=== PATIENT | male | born 1965 | race American Indian/Alaskan Native ===

== ENCOUNTER 2018-11-05 14:50 | Emergency (ER) | payer OTHER ==
[~2018-11-05] VITALS: Ht 170.2 cm; Wt 72.6 kg
--- OUTSIDE RECORDS SUMMARY | ~2018-11-05 | XMS | Clinical Summary ---
Demographics + + + | Address | [address] | | | [place] [address] | + + + | Home Phone | | + + + | Preferred Language | Unknown | + + + | Marital Status | | + + + | Alevism Affiliation | Unknown | + + + | Race | or | + + + | Ethnic Group | Not or | + + + Author + + + | Author | [facility] | + + + | Organization | [facility] | + + + | Address | Unknown | + + + | Phone | Unavailable | + + + Support + + + + + | Name | Relationship | Address | Phone | + + + + + | Greer Mccabe | [place] | [address] | | | | | [place] | | | | | [address] | | + + + + + Care Team Providers + +------+ + | Care Laboratory Apparatus Glass Blower Name | Role | Phone | + +------+ + | Rafa Deleon MD | PP | Unavailable | + +------+ + Source Comments THADDEUS is fully live on both [facility] and [facility] InPatient.[facility] Allergies No Known Allergies Medications + + + +---------+------+------+-------+ | Medication | Sig | Dispensed | Refills | Star | End | Statu | | | | | | t | Date | s | | | | | | Date | | | + + + +---------+------+------+-------+ | methocarbamol | Take 750 mg by mouth | | 0 | 08/0 | | Activ | | (ROBAXIN-750) 750 mg | three times daily. | | | 2/20 | | e | | Oral Tablet | | | | 11 | | | + + + +---------+------+------+-------+ | | Take 1 Tab by mouth | | 0 | 08/0 | | Activ | | HYDROcodone-acetamin | three times daily. | | | 2/20 | | e | | ophen (VICODIN ES) | Not to exceed 5 | | | 11 | | | | 7.5-750 mg Oral | tablets per any 24 | | | | | | | Tablet | hour period. (Not to | | | | | | | | exceed 4000 mg of | | | | | | | | acetaminophen from | | | | | | | | all products per 24 | | | | | | | | hour period.) | | | | | | + + + +---------+------+------+-------+ | predniSONE 10 mg | Take 10 mg by mouth | | 0 | | | Activ | | Oral Tablet | once daily. | | | | | e | + + + +---------+------+------+-------+ | OMEPRAZOLE | Take 1 Tab by mouth | | 0 | 08/0 | | Activ | | (PRILOSEC ORAL) | once daily. | | | 2/20 | | e | | | | | | 11 | | | + + + +---------+------+------+-------+ | folic acid 1 mg | Take 1 mg by mouth | | 0 | | | Activ | | Oral Tablet | once daily. | | | | | e | + + + +---------+------+------+-------+ | ergocalciferol | Take 1 Cap by mouth | 12 Cap | 0 | 08/1 | | Activ | | (VITAMIN D) 50,000 | every seven days. | | | 20 | | e | | unit Oral Capsule | | | | 11 | | | + + + +---------+------+------+-------+ | methotrexate 2.5 | Take 8 Tabs by mouth | 32 Tab | 3 | 07/0 | | Activ | | mg Oral Tablet | every seven days. | | | 03/10 | | e | | | | | | 12 | | | + + + +---------+------+------+-------+ | Etanercept 50 | Inject under the | | 0 | | | Activ | | mg/mL (0.98 mL) | skin (SUBC). | | | | | e | | subcutaneous syringe | | | | | | | + + + +---------+------+------+-------+ Active Problems + + + | Problem | Noted Date | + + + | Primary osteoarthritis | 05/21/2015 | + + + | Fibromyalgia | 05/21/2015 | + + + | Rheumatoid arthritis | 01/20/2011 | + + + + + | Overview: ICD10 | + + Immunizations + + + + | Name | Administration Dates | Next Due | + + + + | Influenza, | 05/21/2015 | | | injectable, | | | | quadrivalent, | | | | preservative free | | | | (IIV4) | | | + + + + | Pneumococcal 23 | 05/21/2015 | | + + + + Social History + +-------+ +--------+------+ | Tobacco Use | Types | Packs/Day | Years | Date | | | | | Used | | + +-------+ +--------+------+ | Current Some Day | | | | | | Smoker | | | | | + +-------+ +--------+------+ + + +---------+ + | Alcohol Use | Drinks/Week | oz/Week | Comments | + + +---------+ + | Not Asked | 0 Standard drinks | 0.0 | | | | or equivalent | | | + + +---------+ + + + + | Sex Assigned at | Date Recorded | | | | + + + | Not on file | | + + + + + + + | Job Start Date | Occupation | Industry | + + + + | Not on file | Not on file | Not on file | + + + + + + + + | Travel History | Travel Start | Travel End | + + + + + + | No recent travel history available. | + + Last Filed Vital Signs + + + + + | Vital Sign | Reading | Time Taken | Comments | + + + + + | Blood Pressure | 117/75 | 05/21/2015 2:02 PM | | | | | PST | | + + + + + | Pulse | 89 | 05/21/2015 2:02 PM | | | | | PST | | + + + + + | Temperature | - | - | | + + + + + | Respiratory Rate | - | - | | + + + + + | Oxygen Saturation | - | - | | + + + + + | Inhaled Oxygen | - | - | | | Concentration | | | | + + + + + | Weight | 79.4 kg (175 lb) | 05/21/2015 2:02 PM | | | | | PST | | + + + + + | Height | 170.2 cm (5' 7") | 05/21/2015 2:02 PM | | | | | PST | | + + + + + | Body Mass Index | 27.41 | 05/21/2015 2:02 PM | | | | | PST | | + + + + + Plan of Treatment + + + + + | Health Maintenance | Due Date | Last Done | Comments | + + + + + | Pneumococcal | | 05/21/2015 | | | vaccination (2 of 3 | 6 | | | | - PCV13) | | | | + + + + + | Influenza (Flu) | | 05/21/2015 | | | vaccination (Season | 9 | | | | Ended) | | | | + + + + + Results Not on filefrom Last 3 Months Insurance + +--------+ +--------+-------+---------+--------+ | Payer | Benefi | Subscriber | Effect | Phone | Address | Type | | | t Plan | ID | noel | | | | | | / | | Dates | | | | | | Group | | | | | | + +--------+ +--------+-------+---------+--------+ | [employer] | [employer] | xxxx | | | | Agency | | SERVICE | | | 014-Pr | | | | | | HEALTH | | esent | | | | | | | | | | | | | | SERVIC | | | | | | | | E | | | | | | + +--------+ +--------+-------+---------+--------+ | [employer]ICA[employer] | MENAGERIE SUPERINTENDENT | xxxxxxxx | | | | Medica | | | EASTER | | 015-Pr | | | id | | | [place] | | esent | | | | + +--------+ +--------+-------+---------+--------+ + +--------+ +--------+ + + | Guarantor Name | Accoun | Relation to | Date | Phone | Billing Address | | | t Type | Patient | of | | | | | | | | | | + +--------+ +--------+ + + | Isacc Mccabe | Person | Self | [birth year] | [address] | | | al/Fam | | 1966 | [phone] | [place] | | | dylan | | | 8 (Home) | [address] | + +--------+ +--------+ + + | Isacc Mccabe | Agency | Self | [birth year] | | [address] | | | | | 1966 | [phone] | [place] | | | | | | [address] (Home) | [address] | + +--------+ +--------+ + + Advance Directives + + + + + | Type | Date Recorded | Patient | Explanation | | | | Cake Press Operator | | + + + + + | Advance | | | | | Directives and | | | | | Living Will | | | | + + + + + | Power of | | | | | Lap Cutter Truer Operator | | | | + + + + +
--- OUTSIDE RECORDS SUMMARY | ~2018-11-05 | XMS | Encounter Summary ---
Demographics + + + | Address | [address] | | | [place] [address] | + + + | Home Phone | | + + + | Preferred Language | Unknown | + + + | Marital Status | | + + + | Jewish Affiliation | Unknown | + + + | Race | or | + + + | Ethnic Group | Not or | + + + Author + + + | Author | [facility] [employer] [facility] | + + + | Organization | [facility] [place] [facility] | + + + | Address | Unknown | + + + | Phone | Unavailable | + + + Support + + + + + | Name | Relationship | Address | Phone | + + + + + | Greer Mccabe | ECON | [address] | | | | | [place] | | | | | [address] | | + + + + + Care Team Providers + +------+ + | Care World Geography Teacher Name | Role | Phone | + +------+ + | Rafa Deleon MD | PCP | Unavailable | + +------+ + Reason for Visit + + + | Reason | Comments | + + + | New patient | | | consultation | | + + + Consultation (Routine) +--------+--------+ + + + + | Status | Reason | Specialty | Diagnoses / | Referred By | Referred To | | | | | Procedures | Contact | Contact | +--------+--------+ + + + + | Closed | | Rheumatology | Diagnoses | [place], | [facility] | | | | | Rheumatoid | Darrion Vazquez MD | [facility] | | | | | arthritis(71 | [address] | [address] | | | | | 4.0) | [address] | [facility] | | | | | | [facility] | Mailcode: | | | | | | 2010 | [address] | | | | | | [address] | Physicians | | | | | | [place] [address] | [address] | | | | | | Phone: | Floor | | | | | | [phone] | [place], [place] | | | | | | Fax: | [address] | | | | | | [phone] | Phone: | | | | | | | [phone] | | | | | | | Fax: | | | | | | | [phone] | +--------+--------+ + + + + Encounter Details +--------+---------+ + + + | Date | Type | Department | Care Team | Description | +--------+---------+ + + + | 05/21/ | Office | Rheumatology at | Dari Reyes MD | Rheumatoid arthritis | | 2015 | Visit | [facility] | [facility] | ([facility]) (Primary Dx); | | | | [address] [facility] | Rheumatology 9[address] | Primary | | | | [facility] | [facility] | osteoarthritis | | | | Mailcode: PV35 | [address] [place], [place] | involving multiple | | | | [facility] [place] | [address] | joints; Fibromyalgia | | | | [place], [place] | | | | | | [address] | | | | | | [phone] | | | +--------+---------+ + + + Social History + +-------+ [...] recent travel history available. | + + documented as of this encounter Last Filed Vital Signs + + + [...] | | + + + + + documented in this encounter Progress Notes Rosa Prieto MD - 05/22/2015 11:35 AM PSTI have evaluated the patient with Dr Reyes and hope rodgers with the history, findings, assessment and plan. Rosa Prieto M.D. [address] [place] [address] Mailcode: Pv35 [facility] [phone] Mercedes Faulkner MA - 06/2014 3:08 PM PSTThe patient was screened for the following contraindications to influenza vaccine and responses were as follows: Febrile illness today? No Allergy to eggs? No Prior history of a reaction to flu vaccine? No Prior history of Guillain-Sundown syndrome? No (For patients receiving Fluarix): Allergy or sensitivity to Latex? Not applicable Consulted with regarding positive responses. Dari Hernández - 1 07/22/2014 11:03 AM PST RHEUMATOLOGY NEW VISIT PCP Rafa Deleon MD [facility] [address] [place] [address] Chief Complaint: Ongoing jt pains HPI: Isacc Mccabe is a 49 y.o. male who is referred for evaluation and treatment of jt pains 2003: Diagnosed with RA which primarily involved hands and feet. 2008: Underwent Neck surgery : anterior cervical discectomy with fusion with [address] d in the neck. Started on MTX, prednisone 10 mg ( and per patient- has been on this dose since) 2013: Was hospitalized for GI bleeding- with cauterization of gastric bleeding vessel done . November 2014: Started on Enbrel by Dr. Deleon. Changed MTX from 20 mg to 15 mg. DCd tramad ol and naproxen. Continued on prednisone 10mg Today pt c/o Pain in several joints b/l : Shoulders, knees, ankles, hands. Also pain in lo wer back and neck. Pain 9/10 in severity with no clear aggravating or relieving factors. Joint swelling has significantly reduced since starting Enbrel per pt. Morning stiffness lasts 4-5 hrs No nodules/ ulcers/ rashes No fever/ chills/ malaise/ fatigue No infections since last visit.No exposure to TB No Chest pain/ SOB/ Nausea/ vomiting. No dry eyes/ dry mouth. Pt c/o difficulty falling asleep and staying asleep. Pt c/o excessive snoring with witnesse d apneic spells. Pt has not had a sleep study in the past. Pt c/o depression but no suicidal or homicidal ideation. No audio-visual hallucinations. Pt c/o memory impairment with short term > skilled nursing memory affected. She described difficu lty with organization of thoughts. Pt often c/o head to toe pain ++ and exageration of any ongoing pain. ROS: 10 point ROS negative as per patient questionnaire reviewed with patient and scanned with t his encounter except for as above. Past Medical History Diagnosis Date Rheumatoid arthritis(714.0) (HCC) Osteoarthritis Past Surgical History Procedure Laterality Date Cervical spine surgery with plates put in Current Outpatient Prescriptions Medication Sig ergocalciferol (VITAMIN D) 50,000 unit Oral Capsule Take 1 Cap by mouth every seven day s. Etanercept 50 mg/mL (0.98 mL) subcutaneous syringe Inject under the skin (SUBC). folic acid 1 mg Oral Tablet Take 1 mg by mouth once daily. HYDROcodone-acetaminophen (VICODIN ES) 7.5-750 mg Oral Tablet Take 1 Tab by mouth three times daily. Not to exceed 5 tablets per any 24 hour period. (Not to exceed 4000 mg of acet aminophen from all products per 24 hour period.) methocarbamol (ROBAXIN-750) 750 mg Oral Tablet Take 750 mg by mouth three times daily. methotrexate 2.5 mg Oral Tablet Take 8 Tabs by mouth every seven days. naproxen sodium (ALEVE) 220 mg Oral Capsule Take 220 mg by mouth two times daily. OMEPRAZOLE (PRILOSEC ORAL) Take 1 Tab by mouth once daily. predniSONE 10 mg Oral Tablet Take 10 mg by mouth once daily. traMADol 50 mg Oral Tablet Take 50 mg by mouth three times daily. No current facility-administered medications for this visit. No Known Allergies History Substance Use Topics Smoking status: Current Some Day Smoker Smokeless tobacco: Not on file Alcohol Use: Not on file FH: grandmother had RA- was wheelchair bound. Has not had Flu shot this yr. Examination: BP 117/75 | Pulse 89 | Ht 1.702 m (5' 7") | Wt 79.379 kg (175 lb) | BMI 27.4 kg/(m^2) Rapid 3 MHAQ: 5.3 (05/21/15 1400) PAIN LEVEL: 8.5 (05/21/15 1400) GLOBAL ASSESSMENT: 9 (05/21/15 1400) RAPID 3: 7.6 (05/21/151399) General: Pleasant, cooperative, no acute distress. Flat affect, poor eye contact. HEENT: No scleral icterus or conjunctival injection. No lacrimal or parotid enlargement. N o malar rashes. Mouth with moist mucous membranes without oral ulcers. Lungs: Clear to auscultation without wheezes or crackles Cardiovascular: RRR without murmurs, rubs, or gallops Skin: No rashes, nodules, ulcers. No apparent psoriasis. Musculoskeletal: Trace warmth left wrist. No wrist synovitis. Reduced ROM b/l wrists on ext ension> flexion. B/l MCPs with bony prominence but no synovitis except trace synovitis in b/l 1st MCPs. B/l PIPs: no synovitis. B/l knees : Good ROM. No synovitis/ effusions. B/l feet and ankle- no synovitis/ effusion. Significant TTP in all articular/ extra-articular areas . Multiple tender points of fibromy algia. Laboratory Data: CBC: within normal limits 11/2014 CMP: within normal limits 11/2014 TSH: 1.17 25 [place] Vit D: No data available on PPD/ QuantiFERON/ hep B or Hep C status- however pt believes he had PP D checked prior to starting Enbrel. Lab Results Component Value Date WBC 8.6 01/20/2011 HB 13.8 01/20/2011 HCT 40.4 01/20/2011 PLT 315 01/20/2011 MCV 91.6 01/20/2011 RDW 14.2 01/20/2011 Lab Results Component Value Date NA 142 01/20/2011 K 3.9 01/20/2011 CL 108 01/20/2011 BICARB 28 01/20/2011 BUN 7 01/20/2011 CR 0.99 01/20/2011 GLU 103 01/20/2011 CA 9.1 01/20/2011 AST 18 01/20/2011 ALT 16 01/20/2011 AP 88 01/20/2011 TBILI 0.8 01/20/2011 TP 7.8 01/20/2011 ALB 3.8 01/20/2011 ANIONGAP 6 01/20/2011 ANIONALBCOR 6 01/20/2011 Lab Results Component Value Date ESR 32* 01/20/2011 Ref. Range 01/20/2011 17:05 RHEUMATOID FACTOR Latest Range: <15 IU/mL 316 (H) CYCLIC CITRUL PEPTIDE AB, IGG Latest Range: < 20 Units 173 (H) Imagin10/2010 MRI Cx spine: FINDINGS: Cervical vertebral bodies demonstrate straightening of the normal lordosis. Patie nt is st atus post multilevel ACDF from C4 through C7. The attendant ferromagnetic artifact partiall y obscure s anatomic detail at the operated levels. Vertebral body heights are maintained. The visual ized gulshan tebral body marrow signal is grossly normal. There is interval progression of a broad based disk bu lge above the fusion at C3-4. There is no significant disk herniation, central or lateral s tenosis. This could represent very early adjacent segment failure. There is a normal expected postoperative appearance of the operated levels from C4 through C7. The C 7-T1 level is partially obscured by artifact, but appears widely patent. The cervical cord demonstrates normal contour and intrinsic signal. No myelopathic lesion i s identif ied. The foramen magnum and visualized posterior fossa structures are unremarkable. IMPRESSION: 1. STATUS POST ACDF C4-C7. 2. DEVELOPING DISK BULGE ABOVE THE FUSION AT C3-4, WITHOUT SIGNIFICANT CENTRAL OR LATERAL S TENOSIS, P OSSIBLY REPRESENTING EARLY ADJACENT SEGMENT FAILURE. Xray Cx spine: FOUR VIEWS CERVICAL SPINE, 10/30/2010 CLINICAL HISTORY: NECK PAIN. COMPARISON: Cervical MRI from the same day, cervical radiograph 05/20/2009. FINDINGS: An AP view and lateral views of the cervical spine in neutral, flexed, and extend ed positi ons are provided. Anterior plate and screw fusion hardware again extends from C4 through C7 . The canchola rdware appears to be well seated, without evidence of failure. Interbody bone plugs persist at these levels, with osseous incorporation of the plugs now suggested compared with the study of . Cervical vertebral height and alignment are maintained, without evident fracture or subluxa tion, ev en with active flexion and extension. Mild disk space narrowing is present at C7-T1. Imaged skull b ase, prevertebral soft tissues, and lung apices are unremarkable. IMPRESSION: 1. STABLE CHANGES OF ACDF AT C4-5, C5-6, AND C6-7 AND MILD DISK SPACE NARROWING AT C7-T1, W ITHOUT SUB LUXATION. Impression: Isacc Mccabe is a 49 y.o. male presenting with the seropositive RA ( RF+ve, CCP+ve) along with osteoarthritis and evidence of central pain sensitization ( fibromyalgia) with sleep i mpairment, memory impairment and mood impairment. 1) Seropositive RA: At present his RA is fairly well controlled on weekly Enbrel, MTX 15 mg and prednisone 10 m g daily. However, we will check baseline labs as well as labs to r/o Hep B, Hep C as pt is on Enbrel . We will also order Xrays Hands and feet to establish baseline and use in the future to brandy tor progression. Pt has chronic neck pain with prior neck sx but given his duration of RA of > 10 yrs and on going neck pain, we will order xray Cx spine in flexion and extension to r/o C1-C2 involvem ent/ atlanto-axial subluxation. 2) OA involving multiple sites: Pt was educated on management of OA Non pharmacological measures would include: - Physical therapy for quadriceps strengthening, -home based exercises with leg lifts - Low impact aerobic exercises like swimming, water aerobics and stationery bicycle 3. Fibromyalgia: Pt has significant head to toe pain, that is exagerated by light pressures and is assoc wit h sleep impairment, memory and mood impairment. I am writing few suggestions to the PCP for further management of Fibromyalgia. 1) Physical and occupational therapy is the mainstay of multidisciplinary treatment of fibr omyalgia: Pt has been referred to PT. 2) Cognitive Behavioral Therapy:This type of therapy has been found to be very effective in Fibromyalgia as well as in chronic fatigue syndrome. I suggest she sees a clinical psycholo gist for cognitive behavioral thearpy. Through a copy of this letter, I am requesting her PC P to organize this referral to a local psychotherapist. 3) Trigger point injections of the FM tender points with local anesthetic agents such as li docaine or procaine are found to be useful in controling the pain. Corticosteroids are not u sed in trigger point injections. We suggest doing 3 to 4 TP injections at one sitting. Lillie er point injections give symptomatic relief in pain, lasting for 3 weeks to 3 months. These are part of the 'multi-disciplinary approch' of pain management that we recommend in fibromy algia. 4) For Pain: Tramadol, lyrica, cymbalta, Neurontin, zanaflex are some of the medication shania t are worth trying for the pain, one at a time, in low dose and then titrating the dose up. Combination therpay is also useful. Through a copy of this note, I am requesting her PCP to try this strategy. She understands that pain medication help only marginally in fibromyalgia - taking the edge off the pain - and I have reiterated the importance of having realistic e xpectations about these types of medication. I have also explained to her that narcotics usu ally do not work well in FM. 5) Sleep impairment: Sleep issues need to be addressed with sleep studies and/ or use of no n habit forming gentle sleep aids such as Melatonin or low dose amytriptyline or low dose tr azodone. Through a copy of this letter, I am going to request patient's PCP to help manage patients fibromyalgia with the above mentioned approach. Recommendations: Xray hands and feet to establish baseline Xray cervical spine in flexion and extension CBC, CMP, ESR Hep B, Hep C, HIV 25 Oh Vit D Flu vaccine given in clinic today Retreive outside records on PPD/ QuantiFERON Fibromyalgia mx per PCP as above I reviewed the patient s questionnaire, answered all questions raised, and provided couns eling and education. This patient was seen and examined with Dr. Prieto who agrees with my assessment and recomme ndations. RTC 4 months Dari Reyes MD RHEUMATOLOGY AT [address] Mailcode: Pv35 [place] [address] documented in this en counter Plan of Treatment Not on filedocumented as of this encounter Visit Diagnoses + + | Diagnosis | + + | Rheumatoid arthritis (HCC) - Primary | + + | Primary osteoarthritis involving multiple joints | + + | Fibromyalgia Mylagia and myositis, unspecified | + + documented in this encounter
--- OUTSIDE RECORDS SUMMARY | ~2018-11-05 | XMS | Encounter Summary ---
Demographics + + + | Address | [address] | | | [place] [address] | + + + | Home Phone | | + + + | Preferred Language | Unknown | + + + | Marital Status | | + + + | Yarsani Affiliation | Unknown | + + + | Race | or | + + + | Ethnic Group | Not or | + + + Author + + + | Author | [facility] [employer] [facility] | + + + | Organization | [facility] [employer] [facility] | + + + | Address | Unknown | + + + | Phone | Unavailable | + + + Support + + + + + | Name | Relationship | Address | Phone | + + + + + | Greer Mccabe | ECON | [address] | | | | | [place] | | | | | [address] | | + + + + + Care Team Providers + +------+ + | Care Administrative Intern Name | Role | Phone | + +------+ + | Albina Morales | PCP | Unavailable | + +------+ + Reason for Visit + + + | Reason | Comments | + + + | Refill Request | Prednisone/Robaxin/Vicodin/Tramadol | + + + Encounter Details +--------+--------+ + + + | Date | Type | Department | Care Team | Description | +--------+--------+ + + + | 05/18/ | Refill | Rheumatology at | Francoise Pendleton, | Refill Request | | 2010 | | [facility] | [address] | (Prednisone/Robaxin/ | | | | [address] | [facility] | Vicodin/Tramadol) | | | | [facility] | [place], [place] | | | | | Mailcode: OP09 | [address] | | | | | Joseph [facility]ynh, | [phone] | | | | | [address] [place] [place] [address] | | | | | | [place], [place] | | | | | | [address] | | | | | | [phone] | | | +--------+--------+ + + + Social History + +-------+ +--------+------+ | Tobacco Use | Types | Packs/Day | Years | Date | | | | | Used | | + +-------+ +--------+------+ | Never Assessed | | | | | + +-------+ +--------+------+ + + + | Sex Assigned at [...] + + documented as of this encounter Plan of Treatment Not on filedocumented as of this encounter Visit Diagnoses Not on filedocumented in this encounter"
--- OUTSIDE RECORDS SUMMARY | ~2018-11-05 | XMS | Encounter Summary ---
Demographics + + + | Address | [address] | | | [place] [address] | + + + | Home Phone | | + + + | Preferred Language | Unknown | + + + | Marital Status | | + + + | Episcopal Affiliation | Unknown | + + + | Race | or | + + + | Ethnic Group | Not or | + + + Author + + + | Author | [facility] [employer] [facility] | + + + | Organization | [facility] [employer] [facility] | + + + | Address | Unknown | + + + | Phone | Unavailable | + + + Support + + + + + | Name | Relationship | Address | Phone | + + + + + | Greer Mccabe | ECON | [address] | | | | | [place] | | | | | [address] | | + + + + + Care Team Providers + +------+ + | Care Spike Machine Feeder Name | Role | Phone | + +------+ + | Rafa Deleon MD | PCP | Unavailable | + +------+ + Encounter Details +--------+ + + + + | Date | Type | Department | Care Team | Description | +--------+ + + + + | 11/05/ | Document-Sc | UNKNOWN DEPARTMENT | Unknown . | | | 2016 | anned | [address] [facility] | | | | | | [facility] | | | | | | [place], [place] | | | | | | [address] | | | +--------+ + + + + Social History + [...] Not on filedocumented as of this encounter Procedures + +--------+ + + + | Procedure Name | Priori | Date/Time | Associated Diagnosis | Comments | | | ty | | | | + +--------+ + + + | LAB REPORTS | | 11/06/2015 | | Results for this | | | | 12:00 AM | | procedure are in the | | | | PDT | | results section. | + +--------+ + + + documented in this encounter Results LAB REPORTS (11/06/2015 12:00 AM PDT) + + + | Narrative | Performed At | + + + | | | + + + documented in this encounter Visit Diagnoses Not on filedocumented in this encounter"
--- OUTSIDE RECORDS SUMMARY | ~2018-11-05 | XMS | Encounter Summary ---
Demographics + + + | Address | [address] | | | [place] [address] | + + + | Home Phone | | + + + | Preferred Language | Unknown | + + + | Marital Status | | + + + | Spiritism Affiliation | Unknown | + + + | Race | Unknown | + + + | Ethnic Group | Unknown | + + + Author + + + | Author | [facility] | + + + | Organization | [facility] | + + + | Address | Unknown | + + + | Phone | Unavailable | + + + Support + + +---------+ + | Name | Relationship | Address | Phone | + + +---------+ + | Greer Cordero | ECON | Unknown | | + + +---------+ + Care Team Providers + +------+ + | Care Tour Agent Name | Role | Phone | + +------+ + PCP | Unavailable | + +------+ + Encounter Details +--------+ + + + + | Date | Type | Department | Care Team | Description | +--------+ + + + + | 09/12/ | Documentati | [facility] | Jacque Tenorio, | | | 2019 | on Only | [facility] | [address] | | | | | [address] | [address] [place], | | | | | [place], [place] | [place] [address] | | | | | [address] | [phone] | | | | | [phone] | | | +--------+ + + + [...] on file | | + + + as of this encounter Plan of Treatment +--------+ + + + + | Date | Type | Specialty | Care Team | Description | +--------+ + + + + | 12/29/ | Initial | Cardiology | Cheryl Hancock DO | | | 2019 | consult | | [address] | | | | | | [place] | | | | | | [address] | | | | | | | | +--------+ + + + + as of this encounter Visit Diagnoses Not on filein this encounter"
--- OUTSIDE RECORDS SUMMARY | ~2018-11-05 | XMS | Encounter Summary ---
Demographics + + + | Address | [address] | | | [place] [address] | + + + | Home Phone | | + + + | Preferred Language | Unknown | + + + | Marital Status | | + + + | Congregation Affiliation | Unknown | + + + | Race | or | + + + | Ethnic Group | Not or | + + + Author + + + | Author | [facility] [employer] [facility] | + + + | Organization | [facility] [employer] [facility] | + + + | Address | Unknown | + + + | Phone | Unavailable | + + + Support + + + + + | Name | Relationship | Address | Phone | + + + + + | Greer Mccabe | ECON | [address] | | | | | [place] | | | | | [address] | | + + + + + Care Team Providers + +------+ + | Care Fur Trapper Name | Role | Phone | + +------+ + | Albina Morales | PCP | Unavailable | + +------+ + Reason for Visit + + + | Reason | Comments | + + + | Vitamin D Deficiency | Vitamin D | + + + Encounter Details +--------+--------+ + + + | Date | Type | Department | Care Team | Description | +--------+--------+ + + + | 01/29/ | Refill | Rheumatology at | Francoise Pendleton, | Vitamin D Deficiency | | 2010 | | [facility] | [address] | (Vitamin D) | | | | [address] | [facility] | | | | | [facility] | [place], [place] | | | | | Mailcode: [id number] | [address] | | | | | [facility], | [phone] | | | | | [address] [place] [address] | | | | | | [place], [place] | | | | | | [address] | | | | | | [phone] | | | +--------+--------+ + + + [...]
--- OUTSIDE RECORDS SUMMARY | ~2018-11-05 | XMS | Encounter Summary ---
Demographics + + + | Address | [address] | | | [place] [address] | + + + | Home Phone | | + + + | Preferred Language | Unknown | + + + | Marital Status | | + + + | Congregational Affiliation | Unknown | + + + | Race | or | + + + | Ethnic Group | Not or | + + + Author + + + | Author | [facility] | + + + | Organization | [facility] [employer] | + + + | Address | Unknown | + + + | Phone | Unavailable | + + + Support + + + + + | Name | Relationship | Address | Phone | + + + + + | Greer Mccabe | ECON | [address] | | | | | [place] | | | | | [address] | | + + + + + Care Team Providers + +------+ + | Care Lcac Operator Name | Role | Phone | + +------+ + | Rafa Deleon MD | PCP | Unavailable | + +------+ + Reason for Visit + + + | Reason | Comments | + + + | Care Coordination | needs labs and f/u appt scheduled | + + + Encounter Details +--------+ + + + + | Date | Type | Department | Care Team | Description | +--------+ + + + + | 10/13/ | Telephone | Rheumatology at | Dari Reyes MD | Care Coordination | | 2015 | | [facility] | [place] | (needs labs and f/u | | | | [address] | Rheumatology [address] | appt scheduled) | | | | [facility] | [facility] | | | | | Mailcode: PV35 | [address] [place], [place] | | | | | [facility] | [id number] | | | | | [place], [place] | | | | | | [address] | | | | | | [phone] | | | +--------+ + + + [...] Diagnosis | + + | Rheumatoid arthritis involving both hands with positive rheumatoid factor (HCC) - | | Primary | + + documented in this encounter"
--- OUTSIDE RECORDS SUMMARY | ~2018-11-05 | XMS | Encounter Summary ---
Demographics + + + | Address | [address] | | | [place] [address] | + + + | Home Phone | | + + + | Preferred Language | Unknown | + + + | Marital Status | | + + + | Islam Affiliation | Unknown | + + + | Race | or | + + + | Ethnic Group | Not or | + + + Author + + + | Author | [facility] | + + + | Organization | [facility] [employer] [facility] | + + + | Address | Unknown | + + + | Phone | Unavailable | + + + Support + + + + + | Name | Relationship | Address | Phone | + + + + + | Greer Mccabe | ECON | [address] | | | | | [place] | | | | | [address] | | + + + + + Care Team Providers + +------+ + | Care Wool Sacker Name | Role | Phone | + +------+ + | Albina Morales | PCP | Unavailable | + +------+ + Reason for Visit + + + | Reason | Comments | + + + | Refill Request | | + + + Encounter Details +--------+--------+ + + + | Date | Type | Department | Care Team | Description | +--------+--------+ + + + | 07/16/ | Refill | Rheumatology at | Francoise Pendleton, | Refill Request | | 2011 | | [facility] | [address] | | | | | [address] | [facility] | | | | | [facility] | [place], [place] | | | | | Mailcode: OP09 | [address] | | | | | [facility], | [phone] | | | | | [address] [place] [address] | | | | | | [place], [place] | | | | | | [address] | | | | | | [phone] | | | +--------+--------+ + + + [...]
--- OUTSIDE RECORDS SUMMARY | ~2018-11-05 | XMS | Encounter Summary ---
Demographics + + + | Address | [address] | | | [place] [address] | + + + | Home Phone | | + + + | Preferred Language | Unknown | + + + | Marital Status | | + + + | Taoism Affiliation | Unknown | + + + | Race | or | + + + | Ethnic Group | Not or | + + + Author + + + | Author | [facility] [employer] [facility] | + + + | Organization | [facility] | + + + | Address | Unknown | + + + | Phone | Unavailable | + + + Support + + + + + | Name | Relationship | Address | Phone | + + + + + | Greer Mccabe | ECON | [address] | | | | | [place] | | | | | [address] | | + + + + + Care Team Providers + +------+ + | Care Assembly Inspector Name | Role | Phone | + +------+ + | Rafa Deleon MD | PCP | Unavailable | + +------+ + Encounter Details +--------+ + + + + | Date | Type | Department | Care Team | Description | +--------+ + + + + | 10/30/ | Document-Sc | UNKNOWN DEPARTMENT | Unknown . | | | 2016 | anned | [address] [facility] | | | | | | [facility] | | | | | | [place], [place] | | | | | | [address] | | | +--------+ + + + [...]
--- OUTSIDE RECORDS SUMMARY | ~2018-11-05 | XMS | Encounter Summary ---
Demographics + + + | Address | [address] | | | [place] [address] | + + + | Home Phone | | + + + | Preferred Language | Unknown | + + + | Marital Status | | + + + | Restorationist Affiliation | Unknown | + + + | Race | or | + + + | Ethnic Group | Not or | + + + Author + + + | Author | [facility] [email or web address] [facility] | + + + | Organization | [facility] [employer] [facility] | + + + | Address | Unknown | + + + | Phone | Unavailable | + + + Support + + + + + | Name | Relationship | Address | Phone | + + + + + | Greer Mccabe | ECON | [address] | | | | | [place] | | | | | [address] | | + + + + + Care Team Providers + +------+ + | Care Hotel Assistant Manager Name | Role | Phone | + [...] Description | +--------+--------+ + + + | 12/27/ | Refill | Rheumatology at | Francoise Pendleton, | Refill Request | | 2011 | | [facility] | [address] | | | | | [address] | [facility] | | | | | [facility] | [place], [place] | | | | | Mailcode: OP09 | [address] | | | | | [facility], | [phone] | | | | | [address] [place] [address] | | | | | | [place], [place] | | | | | | [address] | | | | | | [phone] | | | +--------+--------+ + + + [...]
--- OUTSIDE RECORDS SUMMARY | ~2018-11-05 | XMS | Encounter Summary ---
Demographics + + + | Address | [address] | | | [place] [address] | + + + | Home Phone | | + + + | Preferred Language | Unknown | + + + | Marital Status | | + + + | Zoroastrianism Affiliation | Unknown | + + + | Race | or | + + + | Ethnic Group | Not or | + + + Author + + + | Author | [facility] | + + + | Organization | [facility] | + + + | Address | Unknown | + + + | Phone | Unavailable | + + + Support + + + + + | Name | Relationship | Address | Phone | + + + + + | Greer Mccbae | ECON | [address] | | | | | [place] | | | | | [address] | | + + + + + Care Team Providers + +------+ + | Care Mechanical Assembler Name | Role | Phone | + +------+ + | Rafa Deleon MD | PCP | Unavailable | + +------+ + Encounter Details +--------+ + + + + | Date | Type | Department | Care Team | Description | +--------+ + + + + | 06/04/ | Document-Sc | UNKNOWN DEPARTMENT | Unknown . | | | 2015 | anned | [address] [facility] | | | | | | [facility] | | | | | | [place], [place] | | | | | | [address] | | | +--------+ + + + [...] + + | LAB REPORTS | | 06/03/2015 | | Results for this | | | | 12:00 AM | | procedure are in the | | | | PST | | results section. | + +--------+ + + + documented in this encounter Results LAB REPORTS (06/03/2015 12:00 AM PST) + + + | Narrative | Performed At | + + + | | | + + + documented in this encounter Visit Diagnoses Not on filedocumented in this encounter"
--- OUTSIDE RECORDS SUMMARY | ~2018-11-05 | XMS | Encounter Summary ---
Demographics + + + | Address | [address] | | | [place] [address] | + + + | Home Phone | | + + + | Preferred Language | Unknown | + + + | Marital Status | | + + + | Sabianist Affiliation | Unknown | + + + | Race | or | + + + | Ethnic Group | Not or | + + + Author + + + | Author | [facility] | + + + | Organization | [facility] | + + + | Address | Unknown | + + + | Phone | Unavailable | + + + Support + + + + + | Name | Relationship | Address | Phone | + + + + + | Greer Mccabe | ECON | [address] | | | | | [place] | | | | | [phone] | | + + + + + Care Team Providers + +------+ + | Care Economics Faculty Member Name | Role | Phone | + +------+ + | Albina Morales | PCP | Unavailable | + +------+ + Encounter Details +--------+------+ + + + | Date | Type | Department | Care Team | Description | +--------+------+ + + + | 01/20/ | Lab | Laboratory, | | Rheumatoid arthritis | | 2010 | | Specimen Collection | | ([facility]) | | | | at [facility] 3rd Floor | | | | | | [address] | | | | | | [facility] | | | | | | [place], [place] | | | | | | [address] | | | | | | [phone] | | | +--------+------+ + + + Social History + +-------+ [...] + + documented as of this encounter Krissy Samuels - 01/29/2011 1:28 PM PDT Quick Note: Spoke w/patient and informed him. The medication is pended in a refill encounter. documented in this encounter Plan of Treatment Not on filedocumented as of this encounter Procedures + +--------+ + + + | Procedure Name | Priori | Date/Time | Associated Diagnosis | Comments | | | ty | | | | + +--------+ + + + | DIFFERENTIAL | Routin | 01/20/2011 | | Results for this | | | e | 5:05 PM | | procedure are in the | | | | PDT | | results section. | + +--------+ + + + | CBC, WITH | Routin | 01/20/2011 | Rheumatoid | Results for this | | DIFFERENTIAL | e | 5:05 PM | arthritis (HCC) | procedure are in the | | | | PDT | | results section. | + +--------+ + + + | VITAMIN D, | Routin | 01/20/2011 | Rheumatoid | Results for this | | 25-HYDROXY, SERUM | e | 5:05 PM | arthritis (HCC) | procedure are in the | | | | PDT | | results section. | + +--------+ + + + | COMPLETE METABOLIC | Routin | 01/20/2011 | Rheumatoid | Results for this | | SET | e | 5:05 PM | arthritis (HCC) | procedure are in the | | (NA,K,CL,CO2,BUN,CRE | | PDT | | results section. | | AT,GLUC,CA,AST,ALT,B | | | | | | TOBIN TOTAL,ALK | | | | | | PHOS,ALB,PROT TOTAL) | | | | | + +--------+ + + + | CYCLIC CITRUL | Routin | 01/20/2011 | Rheumatoid | Results for this | | PEPTIDE AB IGG, | e | 5:05 PM | arthritis (HCC) | procedure are in the | | SERUM | | PDT | | results section. | + +--------+ + + + | RHEUMATOID FACTOR, | Routin | 01/20/2011 | Rheumatoid | Results for this | | SERUM | e | 5:05 PM | arthritis (HCC) | procedure are in the | | | | PDT | | results section. | + +--------+ + + + | SEDIMENTATION RATE | Routin | 01/20/2011 | Rheumatoid | Results for this | | | e | 5:05 PM | arthritis (HCC) | procedure are in the | | | | PDT | | results section. | + +--------+ + + + documented in this encounter Results DIFFERENTIAL (01/20/2011 5:05 PM PDT) + +-------+ + + + | Component | Value | Ref Range | Performed | Pathologist | | | | | At | Signature | + +-------+ + + + | NEUTROPHIL | 58 | 50 - 70 % | [facility] | | | % | | | DEPARTMENT | | | | | | OF | | | | | | PATHOLOGY | | + +-------+ + + + | LYMPHOCYTE | 29 | 18 - 42 % | [facility] | | | % | | | DEPARTMENT | | | | | | OF | | | | | | PATHOLOGY | | + +-------+ + + + | MONOCYTE % | 8 | 2 - 8 % | [facility] | | | | | | DEPARTMENT | | | | | | OF | | | | | | PATHOLOGY | | + +-------+ + + + | EOS % | 5 (H) | 1 - 3 % | [facility] | | | | | | DEPARTMENT | | | | | | OF | | | | | | PATHOLOGY | | + +-------+ + + + | BASO % | 1 | <3 % | [facility] | | | | | | DEPARTMENT | | | | | | OF | | | | | | PATHOLOGY | | + +-------+ + + + | NEUTROPHIL | 5.0 | 1.8 - 7.7 K/cu | [facility] | | | # | | mm | DEPARTMENT | | | | | | OF | | | | | | PATHOLOGY | | + +-------+ + + + | LYMPHOCYTE | 2.5 | 1.0 - 4.8 K/cu | [facility] | | | # | | mm | DEPARTMENT | | | | | | OF | | | | | | PATHOLOGY | | + +-------+ + + + | MONOCYTE # | 0.7 | <0.9 K/cu mm | [facility] | | | | | | DEPARTMENT | | | | | | OF | | | | | | PATHOLOGY | | + +-------+ + + + | EOS # | 0.4 | <0.6 K/cu mm | [facility] | | | | | | DEPARTMENT | | | | | | OF | | | | | | PATHOLOGY | | + +-------+ + + + | BASO # | 0.1 | <0.2 | [facility] | | | | | | DEPARTMENT | | | | | | OF | | | | | | PATHOLOGY | | + +-------+ + + + + + | Specimen | + + | | + + + + + + + | Performing | Address | City/State/Zipcode | Phone Number | | Organization | | | | + + + + + | [facility] DE[facility]MENT [facility] | [address] | [place] [address] | | | PATHOLOGY | [address] | | | + + + + + VITAMIN D, 25-HYDROXY, SERUM (01/20/2011 5:05 PM PDT) + + + + + + | Component | Value | Ref Range | Performed | Pathologist | | | | | At | Signature | + + + + + + | VITAMIN D | 21 (L)Comment: | 30 - 80 ng/mL | [facility] | | | 25 HYDROXY | REFERENCE INTERVAL: | | DEPARTMENT | | | | Vitamin D, 25-Hydroxy | | OF | | | | 0-17 | | PATHOLOGY | | | | years: | | | | | | Deficiency: less than 20 | | | | | | ng/mL Optimum | | | | | | level: greater than or | | | | | | equal to 20 | | | | | | ng/mL* | | | | | | *(Bennett CL et al. | | | | | | Pediatrics 2008; 122: | | | | | | 1128-38.) 18 | | | | | | years and older: | | | | | | Deficiency: less than | | | | | | 20 ng/mL | | | | | | Insufficiency: 20-29 | | | | | | ng/mL Optimum | | | | | | level: 30-80 | | | | | | ng/mL Possible | | | | | | toxicity: greater than | | | | | | 150 ng/mL This | | | | | | assay accurately | | | | | | quantifies the sum of | | | | | | vitamin D3, | | | | | | 25-hydroxy and vitamin | | | | | | D2, 25-hydroxy. | | | | | | Testing performed in | | | | | | [facility] & | | | | | | Coagulation | | | | | | Department as of August | | | | | | 2010. | | | | + + + + + + + + | Specimen | + + | Blood - Blood | + + + + + + + | Performing | Address | City/State/Zipcode | Phone Number | | Organization | | | | + + + + + | [facility] | [address] | [place] [address] | | | PATHOLOGY | [address] | | | + + + + + RHEUMATOID FACTOR, SERUM (01/20/2011 5:05 PM PDT) + +---------+ + + + | Component | Value | Ref Range | Performed | Pathologist | | | | | At | Signature | + +---------+ + + + | RHEUMATOID | 316 (H) | <15 IU/mL | [facility] | | | FACTOR | | | REGIONAL | | | | | | LABORATORY | | + +---------+ + + + + + | Specimen | + + | Blood - Blood | + + + + + | Narrative | Performed At | + + + | [facility]) | [facility] | | [address] [address] | REGIONAL | | [place] [address] | LABORATORY | + + + + + + + + | Performing | Address | City/State/Zipcode | Phone Number | | Organization | | | | + + + + + | [facility] | [address] | [place] [address] | | | LABORATORY | | | | + + + + + SEDIMENTATION RATE (01/20/2011 5:05 PM PDT) + +--------+ + + + | Component | Value | Ref Range | Performed | Pathologist | | | | | At | Signature | + +--------+ + + + | SEDIMENTATI | 32 (H) | <16 mm/hr | [facility] | | | ON RATE | | | DEPARTMENT | | | | | | OF | | | | | | PATHOLOGY | | + +--------+ + + + + + | Specimen | + + | Blood - Blood | + + + + + + + | Performing | Address | City/State/Zipcode | Phone Number | | Organization | | | | + + + + + | [facility] | [address] | [place] [address] | | | PATHOLOGY | [address] | | | + + + + + COMPLETE METABOLIC SET (NA,K,CL,CO2,BUN,CREAT,GLUC,CA,AST,ALT,BILI TOTAL,ALK PHOS,ALB,PROT TOTAL) (01/20/2011 5:05 PM PDT) + + + + + + | Component | Value | Ref Range | Performed | Pathologist | | | | | At | Signature | + + + + + + | GLUCOSE, | 103 (H) | 60 - 99 mg/dL | [facility] | | | PLASMA | | | DEPARTMENT | | | (LAB) | | | OF | | | | | | PATHOLOGY | | + + + + + + | BUN, PLASMA | 7 | 6 - 20 mg/dL | [facility] | | | (LAB) | | | DEPARTMENT | | | | | | OF | | | | | | PATHOLOGY | | + + + + + + | CREATININE | 0.99 | 0.70 - 1.30 | [facility] | | | PLASMA | | mg/dL | DEPARTMENT | | | (LAB) | | | OF | | | | | | PATHOLOGY | | + + + + + + | TOTAL | 7.8 | 6.1 - 7.9 g/dL | [facility] | | | PROTEIN, | | | DEPARTMENT | | | PLASMA | | | OF | | | (LAB) | | | PATHOLOGY | | + + + + + + | ALBUMIN, | 3.8 | 3.5 - 4.7 g/dL | [facility] | | | PLASMA | | | DEPARTMENT | | | (LAB) | | | OF | | | | | | PATHOLOGY | | + + + + + + | CALCIUM, | 9.1 | 8.6 - 10.2 | [facility] | | | PLASMA | | mg/dL | DEPARTMENT | | | (LAB) | | | OF | | | | | | PATHOLOGY | | + + + + + + | BILIRUBIN | 0.8 | 0.3 - 1.2 mg/dL | [facility] | | | TOTAL | | | DEPARTMENT | | | | | | OF | | | | | | PATHOLOGY | | + + + + + + | ALK PHOS | 88 | 53 - 128 U/L | [facility] | | | | | | DEPARTMENT | | | | | | OF | | | | | | PATHOLOGY | | + + + + + + | AST(SGOT) | 18 | 15 - 41 U/L | [facility] | | | | | | DEPARTMENT | | | | | | OF | | | | | | PATHOLOGY | | + + + + + + | SODIUM, | 142 | 134 - 143 | [facility] | | | PLASMA | | mmol/L | DEPARTMENT | | | (LAB) | | | OF | | | | | | PATHOLOGY | | + + + + + + | POTASSIUM, | 3.9 | 3.4 - 5.0 | [facility] | | | PLASMA | | mmol/L | DEPARTMENT | | | (LAB) | | | OF | | | | | | PATHOLOGY | | + + + + + + | CHLORIDE, | 108 | 97 - 108 mmol/L | [facility] | | | PLASMA | | | DEPARTMENT | | | (LAB) | | | OF | | | | | | PATHOLOGY | | + + + + + + | TOTAL CO2, | 28 | 22 - 29 mmol/L | [facility] | | | PLASMA | | | DEPARTMENT | | | (LAB) | | | OF | | | | | | PATHOLOGY | | + + + + + + | ALT (SGPT) | 16 | 13 - 48 U/L | [facility] | | | | | | DEPARTMENT | | | | | | OF | | | | | | PATHOLOGY | | + + + + + + | EGFR | > 60 | >60 mL/min | [facility] | | | - | | | DEPARTMENT | | | AFGHAN | | | OF | | | | | | PATHOLOGY | | + + + + + + | EGFR NON | > 60Comment: GFR is | >60 mL/min | [facility] | | | -GENARO | estimated using the MDRD | | DEPARTMENT | | | RICAN | equation recommended by | | OF | | | | theNational Kidney | | PATHOLOGY | | | | Disease Education | | | | | | Program. Estimated GFR | | | | | | Interpretive | | | | | | Information: <60 | | | | | | mL/min/1.73 sq m | | | | | | Chronic Kidney Disease | | | | | | <15 mL/min/1.73 sq | | | | | | m Kidney Failure | | | | | | Estimated GFR greater | | | | | | than 60mL/min/1.73 is of | | | | | | limited clinical Value. | | | | | | The MDRD equation is | | | | | | not valid in the | | | | | | following situations: - | | | | | | Patients under 18 years | | | | | | of age - Severe | | | | | | malnutrition or obesity | | | | | | - Vegetarian diet - | | | | | | Rapidly changing kidney | | | | | | function | | | | + + + + + + | ANION GAP | 6 | 4 - 11 mmol/L | [facility] | | | | | | DEPARTMENT | | | | | | OF | | | | | | PATHOLOGY | | + + + + + + | ANION | 6 | 4 - 11 mmol/L | [facility] | | | GAP(ALB | | | DEPARTMENT | | | CORRECTED) | | | OF | | | | | | PATHOLOGY | | + + + + + + + + | Specimen | + + | Blood - Blood | + + + + + + + | Performing | Address | City/State/Zipcode | Phone Number | | Organization | | | | + + + + + | [facility] | [address] | [place] [address] | | | PATHOLOGY | [address] | | | + + + + + CBC, WITH DIFFERENTIAL (01/20/2011 5:05 PM PDT) + + + + + + | Component | Value | Ref Range | Performed | Pathologist | | | | | At | Signature | + + + + + + | WHITE CELL | 8.6 | 4.4 - 11.0 K/cu | [facility] | | | COUNT | | mm | DEPARTMENT | | | | | | OF | | | | | | PATHOLOGY | | + + + + + + | RED CELL | 4.41 (L) | 4.50 - 5.90 | [facility] | | | COUNT | | M/cu mm | DEPARTMENT | | | | | | OF | | | | | | PATHOLOGY | | + + + + + + | HEMOGLOBIN | 13.8 | 13.5 - 17.5 | [facility] | | | | | g/dL | DEPARTMENT | | | | | | OF | | | | | | PATHOLOGY | | + + + + + + | HEMATOCRIT | 40.4 (L) | 41.0 - 53.0 % | [facility] | | | | | | DEPARTMENT | | | | | | OF | | | | | | PATHOLOGY | | + + + + + + | MCV | 91.6 | 80.0 - 96.0 fL | [facility] | | | | | | DEPARTMENT | | | | | | OF | | | | | | PATHOLOGY | | + + + + + + | MCHC | 34.3 | 33.4 - 35.5 | [facility] | | | | | g/dL | DEPARTMENT | | | | | | OF | | | | | | PATHOLOGY | | + + + + + + | RDW | 14.2 | 11.5 - 15.0 % | [facility] | | | | | | DEPARTMENT | | | | | | OF | | | | | | PATHOLOGY | | + + + + + + | PLATELET | 315 | 150 - 400 K/cu | [facility] | | | COUNT | | mm | DEPARTMENT | | | | | | OF | | | | | | PATHOLOGY | | + + + + + + + + | Specimen | + + | Blood - Blood | + + + + + + + | Performing | Address | City/State/Zipcode | Phone Number | | Organization | | | | + + + + + | [facility]MENT [facility] | [address] | [place] [address] | | | PATHOLOGY | [address] | | | + + + + + CYCLIC CITRUL PEPTIDE AB IGG, SERUM (01/20/2011 5:05 PM PDT) + + + + + + | Component | Value | Ref Range | Performed | Pathologist | | | | | At | Signature | + + + + + + | CYCLIC | 173 (H)Comment: | <20 Units | [facility] | | | CITRUL | REFERENCE INTERVAL: | | REG UNIV | | | PEPTIDE AB, | Cyclic Citrullinated | | PTH - | | | IGG | Peptide Antibody, IgG | | MANUAL | | | | 19 Units or less | | | | | | ................... | | | | | | Negative 20-39 Units | | | | | | ........................ | | | | | | Weak Positive 40-59 | | | | | | Units | | | | | | ........................ | | | | | | Moderate Positive 60 | | | | | | Units or greater | | | | | | ................ Strong | | | | | | Positive Anti-cyclic | | | | | | citrullinated peptide | | | | | | (anti-CCP), | | | | | | IgGantibodies are | | | | | | present in about 69-83 | | | | | | percent of patientswith | | | | | | rheumatoid arthritis | | | | | | (RA) and have | | | | | | specificities of93-95 | | | | | | percent. These | | | | | | autoantibodies may be | | | | | | present in | | | | | | thepreclinical phase of | | | | | | disease, are associated | | | | | | with future | | | | | | RAdevelopment, and may | | | | | | predict radiographic | | | | | | jointdestruction. | | | | | | Patients with weak | | | | | | positive results should | | | | | | bemonitored and testing | | | | | | repeated.Performed by | | | | | | [facility] | | | | | | [facility], | | | | | | | | | | | | [address] | [address], [facility] | | | | | | [address] | | | | | | [phone] | | | | | | | | | | | | www.[employer] | | | | | | Adryan Yu MD - Lab. | | | | | | Director | | | | + + + + + + + + | Specimen | + + | Blood - Blood | + + + + + + + | Performing | Address | City/State/Zipcode | Phone Number | | Organization | | | | + + + + + | [facility] | [address] | [place], [place] | | | UN[facility] | | [address] | | + + + + + | [facility] | [address] | [place], [place] | | | UNIV PTH - MANUAL | | [phone] | | + + + + + documented in this encounter Visit Diagnoses + + | Diagnosis | + + | Rheumatoid arthritis(714.0) Rheumatoid arthritis | + + documented in this encounter"
--- OUTSIDE RECORDS SUMMARY | ~2018-11-05 | XMS | Encounter Summary ---
Demographics + + + | Address | [address] | | | [place] [address] | + + + | Home Phone | | + + + | Preferred Language | Unknown | + + + | Marital Status | | + + + | Moravian Affiliation | Unknown | + + + | Race | or | + + + | Ethnic Group | Not or | + + + Author + + + | Author | [facility] [employer] [facility] | + + + | Organization | [facility] | + + + | Address | Unknown | + + + | Phone | Unavailable | + + + Support + + + + + | Name | Relationship | Address | Phone | + + + + + | Greer Mccabe | ECON | [address] | | | | | [place] | | | | | [address] | | + + + + + Care Team Providers + +------+ + | Care Food Tray Assembler Name | Role | Phone | + +------+ + | Albina Berg | PCP | Unavailable | + +------+ + Reason for Visit + + + | Reason | Comments | + + + | New patient | | | consultation | | + + + Encounter Details +--------+---------+ + + + | Date | Type | Department | Care Team | Description | +--------+---------+ + + + | 01/20/ | Office | Rheumatology at | Francoise Pendleton, | Rheumatoid arthritis | | 2010 | Visit | Joseph Huynh | MD [address] | ([facility]) (Primary Dx) | | | | [address] | [facility] | | | | | [facility] | [place], [place] | | | | | Mailcode: OP09 | [address] | | | | | Joseph Huynh, | [phone] | | | | | [address] [place] [address] | | | | | | [place], [place] | | | | | | [address] | | | | | | [phone] | | | +--------+---------+ + + + [...] + + + | Blood Pressure | 110/68 | 01/20/2011 3:59 PM | | | | | PDT | | + + + + + | Pulse | 88 | 01/20/2011 3:59 PM | | | | | PDT | | + + + + + [...] + + + + | Weight | 71.2 kg (157 lb) | 01/20/2011 3:59 PM | | | | | PDT | | + + + + + | Height | 170.2 cm (5' 7") | 01/20/2011 3:59 PM | | | | | PDT | | + + + + + | Body Mass Index | 24.59 | 01/20/2011 3:59 PM | | | | | PDT | | + + + + + documented in this encounter Progress Notes Francoise Pendleton MD - 01/20/2011 4:18 PM PDTFormatting of this note might be different fro m the original. RHEUMATOLOGY NEW PATIENT CONSULT This consultation was requested by: ALBINA BERG [facility] [address] [place] [address] fax: [phone] CC: Chief Complaint Patient presents with New patient consultation HPI: This is a 45 y.o. male, here for consultation from Albina Berg OIL PAINT SHADER regarding diagno sis, and possible change in therapy for rheumatoid arthritis. Mr. Mccabe is a man and his arthritis started 14 years ago in his neck and b ack (with pain) and then it spread to his elbows, ankles, wrists and fingers (mainly pain an d also some swelling in fingers). His MCP/PIP were swollen. He also had nerve pinching in t he neck and required a major cervical spine surgery and plates put in in the cervical spine in 2009. He was seen by Dr Palacios earlier and then again 2009 and was diagnosed with RA. H tan was started on MTX and currently he is taking 5 mg/week. EMS: 2 hours. Three months ago he was sitting down at home and he heard a loud "pop" coming from his neck and experienced severe pain. He was worried that he might have damaged the plate and screw s put in the neck. He saw his PCP who reassured him that the surgical hardware was stable. However, since then any movement of his cervical spine he hears pop, grinding, cracking. B ecause of his persistent worries, his PCP sent him to us to look at his cervical spine. His RA is getting reactivated but he is reducing his methotrexate rather than increasing th e dose! ROS: General: Constitutional symptoms of fatigue, weakness, no fevers, night sweats. Eyes: No changes in visual acuity, diplopia or amaurosis, no discharge, matting, redness, tearing or eye pain. Ears/Nose/Throat: No sore throat, dental pain, hoarseness, dysphagia, oral or tongue lesio ns. No history of hearing loss, ear pain, or aural discharge. However, he has started with t innitus with the neck popping. CVS: No chest pain, leg swelling, or palpitations. Respiratory: No shortness of breath, cough, or pain with breathing. Gastrointestinal: No abdominal or flank pain, anorexia, nausea or vomiting, dysphagia, christopher nge in bowel habits or black or bloody stools or weight loss. Musculoskeletal: Symptoms of joint pain, swelling, myalgias and neck pain as noted above. Neurologic: No symptoms of neurological impairment or TIAs; no amaurosis, diplopia, dysphas ia, or unilateral disturbance of motor function. He however has sensory deficit in left yvan e ulnar distribution after the neck surgery. No loss of balance or vertigo. Heme/Lymphatic: No abnormal bruising, abnormal bleeding or enlarged lymph nodes. Skin: No rash. PMH: Past Medical History Diagnosis Date Rheumatoid arthritis Osteoarthritis PSH: Past Surgical History Procedure Date Cervical spine surgery with plates put in Meds: Current outpatient prescriptions Medication Sig folic acid 1 mg Oral Tablet Take [...] daily. methotrexate 2.5 mg Oral Tablet Take by mouth every seven days. naproxen sodium (ALEVE) 220 mg Oral Capsule Take 220 mg by mouth two times daily. OMEPRAZOLE (PRILOSEC ORAL) Take 1 Tab by mouth once daily. predniSONE 10 mg Oral Tablet Take 10 mg by mouth once daily. traMADol 50 mg Oral Tablet Take 50 mg by mouth three times daily. Allergies: Review of patient's allergies indicates no known allergies. Social History: Isacc Vaccinations: There is no immunization history on file for this patient. Exam: Vital Signs: BP 110/68 | Pulse 88 | Ht 1.702 m (5' 7") | Wt 71.215 kg (157 lb) | BMI 24.59 kg/(m^2) Pain Score: 5 Rapid 3 MHAQ: 4.3 (01/20/111599) PAIN LEVEL: 8 (01/20/111599) GLOBAL ASSESSMENT: 6.5 (01/20/111599) RAPID 3: 6.27 (01/20/111599) Gen: Well nourished, well developed, in NAD HEENT: PERRLA, EOMI, O/P clear, no facial rash or alopecia Neck: supple, no lymphadenopathy, FROM Lungs: clear to ausculation bilaterally CVS: S1S2, RRR, no murmurs, rubs or gallops Abd: normal BS, soft, NT, ND Ext: no clubbing, cyanosis or edema DAS28: Today Isacc's DAS28 assessment revealed a total of 17 tender and 3 swollen joints coupled with a recent ESR value of 32 mm/hr and a global health value of 65 mm. Based upon these data Isacc's DAS28 was calculated as 6.1 (on a scale of 0-10). Therefore, his honey urbina disease activity level is considered to be High. M/S: Synovitis or joint tenderness as above, full ROM throughout joints of upper and lower extremities Skin: no abnormalities Neuro: CN intact, sensory exam intact, strength full, reflexes normal and symmetric Labs: No results found for this basename: wbc, rbc, hct, hb, mcv, mch, mchc, plt, neutroperc, lym phperc, monoperc, eosperc, basoperc, neutrophilco, glu, bun, cr, tp, alb, ca, tbili, ap, ast , na, k, cl, bicarb, alt No results found for this basename: ESR Radiology: None recently Impression: This is a 45 y.o. male, here for evaluation of rheumatoid arthritis. His RA is very active as shown by the multiple swollen and tender joints and the DAS28 of 6.1. He r equires higher dose of MTX, and may require anti-TNF agents later. His neck is quite stable and I have reassured him that 'noises' coming form the musculoskeletal system usually are n ot suggestive of a pathology. I reviewed the patient s questionnaire which included more than 10 review of systems, ans wered all questions raised, and provided counseling and education. Pain Assessment: 01/28 Recommendations: 1. In todays clinic, I reviewed the patient's new visit questionnaire, past medical history , a 10 systems review, side-effect profile of medications etc. I spent 60 minutes with the patient in a [id number] meeting and >50% time was spent in medically indicated counseling, and education. I have also answered all the questions raised by him. 2. I suggest that he goes up to 20 mg MTX per week. The usual, common dose of MTX for cont rol of rheumatoid arthritis is between 15 to 25 mg per week. If this is not sufficient (as assessed by clinical examination and laboratory studies), he may require anti-TNF agents. Aurelio maddox will introduce this therapy after reassessing him after three months. 3. I also suggest that he comes to see us in [facility] on . I am requesting his PCP to make a referral there 4. CBC+diff, CMP, ESR, CRP, anti-CCP, RF today documented in this en counter Plan of Treatment Not on filedocumented as of this encounter Results VITAMIN D, 25-HYDROXY, SERUM (01/20/2011 5:05 PM [...] | + + + + + | [facility] | [address] | [place] [address] | | | PATHOLOGY | [address] [...] At | + + + | [facility] ([facility]) | [facility] | | [facility] [place] [address] | REGIONAL | | [place] [address] | LABORATORY | + + + + + + + + | Performing | Address | City/State/Zipcode | Phone Number | | Organization | | | | + + + + + | [facility] | [address] [place] [address] | | | LABORATORY | | | [...] | + + + + + | [facility] | [address] | [place] [address] | | | PATHOLOGY | [address] [...] (H) | 60 - 99 mg/dL | [facility] | | | PLASMA | | | [...] | | | DEPARTMENT | | | [place] | | | OF | | | [...] | + + + + + | [facility] | [address] | [place] [address] | | | PATHOLOGY | [address] [...] | + + + + + | [facility] | [address] | [place] [address] | | | PATHOLOGY | [address] [...] | | | | | | [facility] | | | | | | [address] | | | | | | [phone] | | | | | | | | | | | | [email or web address], Marlyn | | | | | | [...] [facility] | [address] | [place], [place] | | | UN[facility] - INT[facility] | | [address] | | + + + + + | [facility] | [address] | [place], [place] | | | UN[facility] P[facility] - MANUAL | | [address] | | + + + + + documented in this encounter Visit Diagnoses + + | Diagnosis | + + | Rheumatoid arthritis(714.0) - Primary Rheumatoid arthritis | + + documented in this encounter
--- OUTSIDE RECORDS SUMMARY | ~2018-11-05 | XMS | Encounter Summary ---
Demographics + + + | Address | [address] | | | [place] [address] | + + + | Home Phone | | + + + | Preferred Language | Unknown | + + + | Marital Status | | + + + | Yarsani Affiliation | Unknown | + + + | Race | Unknown | + + + | Ethnic Group | Unknown | + + + Author + + + | Author | [facility] | + + + | Organization | [facility] | + + + | Address | Unknown | + + + | Phone | Unavailable | + + + Support + + +---------+ + | Name | Relationship | Address | Phone | + + +---------+ + | Greer Cordero | ECON | Unknown | | + + +---------+ + Care Team Providers + +------+ + | Care Double Bass Player Name | Role | Phone | + [...] Dr [address], | | | | | [place], [place] | [place] [address] | | | | | [address] | [phone] | | | | | [phone] | | | +--------+ + + + [...] [place] | | | | | | [address] | | | | | | | | +--------+ + + + + as of this encounter Visit Diagnoses Not on filein this encounter"
--- OUTSIDE RECORDS SUMMARY | ~2018-11-05 | XMS | Encounter Summary ---
Demographics + + + | Address | [address] | | | [place] [address] | + + + | Home Phone | | + + + | Preferred Language | Unknown | + + + | Marital Status | | + + + | Sabianism Affiliation | Unknown | + + + | Race | or | + + + | Ethnic Group | Not or | + + + Author + + + | Author | [facility] [facility] | + + + | Organization | [facility] [employer] [facility] | + + + | Address | Unknown | + + + | Phone | Unavailable | + + + Support + + + + + | Name | Relationship | Address | Phone | + + + + + | Greer Mccabe | ECON | [address] | | | | | [place] | | | | | [address] | | + + + + + Care Team Providers + +------+ + | Care Timber Rider Name | Role | Phone | + [...] | | | [address] | [facility] | | | | | [facility] | [place], [place] | | | | | Mailcode: OP09 | [address] | | | | | Physicians [place], | [phone] | | | | | [address] [place] [address] | | | | | | [place], [place] | | | | | | [address] | | | | | | [phone] | | | +--------+--------+ + + + [...]
--- OUTSIDE RECORDS SUMMARY | ~2018-11-05 | XMS | Encounter Summary ---
Demographics + + + | Address | [address] | | | [place] [address] | + + + | Home Phone | | + + + | Preferred Language | Unknown | + + + | Marital Status | | + + + | Buddhism Affiliation | Unknown | + + + | Race | or | + + + | Ethnic Group | Not or | + + + Author + + + | Author | [facility] [employer] [facility] | + + + | Organization | [facility] | + + + | Address | Unknown | + + + | Phone | Unavailable | + + + Support + + + + + | Name | Relationship | Address | Phone | + + + + + | Greer Mccabe | ECON | [address] | | | | | [place] | | | | | [address] | | + + + + + Care Team Providers + +------+ + | Care Audiovisual Equipment Operator Name | Role | Phone | + +------+ + | Rafa Deleon MD | PCP | Unavailable | + +------+ + Encounter Details +--------+ + + + + | Date | Type | Department | Care Team | Description | +--------+ + + + + | 11/05/ | Document-Sc | UNKNOWN DEPARTMENT | Unknown . | | | 2016 | anned | [address] [facility] | | | | | | [facility] | | | | | | [place], [place] | | | | | | [address] | | | +--------+ + + + [...]
--- OUTSIDE RECORDS SUMMARY | ~2018-11-05 | XMS | Clinical Summary ---
Demographics + + + | Address | [address] | | | [place] [address] | + + + | Home Phone | | + + + | Preferred Language | Unknown | + + + | Marital Status | | + + + | Bahai Affiliation | Unknown | + + + | Race | Unknown | + + + | Ethnic Group | Unknown | + + + Author + + + | Author | [facility] | + + + | Organization | [facility] | + + + | Address | Unknown | + + + | Phone | Unavailable | + + + Support + + +---------+ + | Name | Relationship | Address | Phone | + + +---------+ + | Greer Cordero | ECON | Unknown | | + + +---------+ + Care Team Providers + +------+ + | Care Driver Sales Name | Role | Phone | + +------+ + | [facility] PP | | + +------+ + Allergies Not on File Current Medications Not on file Active Problems Not on file Encounters +--------+ + + + + | Date | Type | Specialty | Care Team | Description | +--------+ + + + + | 09/12/ | Documentati | | Jacque Tenorio, | | | 2018 | on Only | | MD | | +--------+ + + + + from Last 3 Months Social History + +-------+ +--------+------+ | Tobacco [...] on file | | + + + Plan of Treatment +--------+ + + + + | Date | Type | Specialty | Care Team | Description | +--------+ + + + + | 12/29/ | Initial | | Cheryl Hancock DO | | | 2019 | consult | | [address] | | | | | | [place] | | | | | | [address] | | | | | | | | +--------+ + + + + + + + + + | Health Maintenance | Due Date | Last Done | Comments | + + + + + | Vaccine: | | | | | Dtap/Tdap/Td (1 - | 4 | | | | Tdap) | | | | + + + + + | Colon Cancer | | | | | Screening | 5 | | | | (Colonoscopy) | | | | + + + + + | Vaccine: Zoster (1 | | | | | of 2) | 5 | | | + + + + + | Vaccine: Influenza | | | | | (Season Ended) | 9 | | | + + + + + Results Not on filefrom Last 3 Months Insurance + +--------+ +------+-------+ + | Payer | Benefi | Subscriber | Type | Phone | Address | | | t Plan | ID | | | | | | / | | | | | | | Group | | | | | + +--------+ +------+-------+ + | MEDICAID | MEDICA | [id number] | | | [address] | | | [place] | | | | [place], [place] | | | [place] | | | | [address] | + +--------+ +------+-------+ + | /[facility] | YELLOW | [id number] | | | | | PLANS | [place] | | | | | + +--------+ +------+-------+ + + +--------+ +--------+ + + | Guarantor Name | Accoun | Relation to | Date | Phone | Billing Address | | | t Type | Patient | of | | | | | | | | | | + +--------+ +--------+ + + | PERRI MCCABE | Person | Self | [birth year] | Home: | [address] | | | [place] | | 1966 | [phone] | [place] | | | [place] | | | [phone] | [address] | + +--------+ +--------+ + +"
--- OUTSIDE RECORDS SUMMARY | ~2018-11-05 | XMS | Encounter Summary ---
Demographics + + + | Address | [address] | | | [place] [address] | + + + | Home Phone | | + + + | Preferred Language | Unknown | + + + | Marital Status | | + + + | Latter Day Affiliation | Unknown | + + + | Race | or | + + + | Ethnic Group | Not or | + + + Author + + + | Author | [facility] | + + + | Organization | [facility] | + + + | Address | Unknown | + + + | Phone | Unavailable | + + + Support + + + + + | Name | Relationship | Address | Phone | + + + + + | Greer Mccabe | ECON | [address] | | | | | [place] | | | | | [address] | | + + + + + Care Team Providers + +------+ + | Care Aircraft Maintenance Instructor Name | Role | Phone | + +------+ + | Rafa Deleon MD | PCP | Unavailable | + +------+ + Encounter Details +--------+ + + + + | Date | Type | Department | Care Team | Description | +--------+ + + + + | 05/21/ | Documentati | Rheumatology at | Dari Reyes MD | | | 2014 | on | Physicians [place] | [place] | | | | | [address] [facility] | Rheumatology [address] | | | | | [facility] | [facility] | | | | | Mailcode: OP09 | [address] [place], [place] | | | | | Physicians [place]ina, | [phone] | | | | | 4th Floor | | | | | | [place], [place] | | | | | | [address] | | | | | | [phone] | | | +--------+ + + + [...]
--- OUTSIDE RECORDS SUMMARY | ~2018-11-05 | XMS | Clinical Summary ---
Demographics + + + | Address | [address] | | | [place] [address] | + + + | Home Phone | | + + + | Preferred Language | Unknown | + + + | Marital Status | | + + + | Presybeterian Affiliation | Unknown | + + + [...] + | Greer Mccabe | [place] | [address] | | | | | [place] | | | | | [address] | | + + + + + Care Team Providers + +------+ + | Care Ironer Sock Name | Role | Phone | + +------+ + | Rafa Deleon MD | PP | Unavailable | + +------+ + Source Comments THADDEUS is fully live on both [facility] and [facility] Allergies No Known Allergies Medications + + [...] | | | + +--------+ +--------+-------+---------+--------+ | [facility] | [facility] | xxxx | | | | Agency | | SERVICE | | | 014-Pr | | | | | | HEALTH | | esent | | | | | | | | | | | | | | SERVIC | | | | | | | | E | | | | | | + +--------+ +--------+-------+---------+--------+ | ASSOCIATE TEAM PHYSICIAN MEDICAID | ASSOCIATE TEAM PHYSICIAN | xxxxxxxx | | | | Medica [...] Person | Self | [birth year] | [address] | | | al/Fam | | 1966 | [phone] | [place] | | | [place] | | | [address] (Home) | [address] | + +--------+ +--------+ + + | Isacc Mccabe | Agency | Self | [birth year] | | [address] | | | | | 1966 | [phone] | [place] | | | | | | [address] (Home) | [address] | + +--------+ +--------+ + + Advance Directives + + + + + | Type | Date Recorded | Patient | Explanation | | | | Floor Worker | | + + + + + | Advance | | | | | Directives and | | | | | Living Will | | | | + + + + + | Power of | | | | | Subway Conductor | | | | + + + + +
--- OUTSIDE RECORDS SUMMARY | ~2018-11-05 | XMS | Encounter Summary ---
Demographics + + + | Address | [address] | | | [place] [address] | + + + | Home Phone | | + + + | Preferred Language | Unknown | + + + | Marital Status | | + + + | Religion Affiliation | Unknown | + + + | Race | or | + + + | Ethnic Group | Not or | + + + Author + + + | Author | [facility] [facility] | + + + | Organization | [facility] [employer] [facility] | + + + | Address | Unknown | + + + | Phone | Unavailable | + + + Support + + + + + | Name | Relationship | Address | Phone | + + + + + | Greer Mccabe | ECON | [address] | | | | | [place] | | | | | [address] | | + + + + + Care Team Providers + +------+ + | Care Privacy Director Name | Role | Phone | + [...] | 2015 | | Joseph Huynh | Christmas | (needs labs and f/u | | | | [address] | Rheumatology [address] | appt scheduled) | | | | [facility] | [facility] | | | | | Mailcode: PV35 | [address] [place], [place] | | | | | Physicians [place] | [phone] | | | | | [place], [place] | | | | | | [address] | | | | | | [phone] | | | +--------+ + + + [...]
--- OUTSIDE RECORDS SUMMARY | ~2018-11-05 | XMS | Encounter Summary ---
Demographics + + + | Address | [address] | | | [place] [address] | + + + | Home Phone | | + + + | Preferred Language | Unknown | + + + | Marital Status | | + + + | Mormonism Affiliation | Unknown | + + + | Race | or | + + + | Ethnic Group | Not or | + + + Author + + + | Author | [facility] [employer] [facility] | + + + | Organization | [facility] [employer] [facility] | + + + | Address | Unknown | + + + | Phone | Unavailable | + + + Support + + + + + | Name | Relationship | Address | Phone | + + + + + | Greer Mccabe | ECON | [address] | | | | | [place] | | | | | [address] | | + + + + + Care Team Providers + +------+ + | Care Retail Loss Prevention Officer Name | Role | Phone | + +------+ + | Rafa Deleon MD | PCP | Unavailable | + +------+ + Encounter Details +--------+ + + + + | Date | Type | Department | Care Team | Description | +--------+ + + + + | 11/05/ | Document-Sc | UNKNOWN DEPARTMENT | Unknown . | | | 2016 | anned | [address] [facility] | | | | | | [facility] | | | | | | [place], [place] | | | | | | [address] | | | +--------+ + + + [...]
--- OUTSIDE RECORDS SUMMARY | ~2018-11-05 | XMS | Encounter Summary ---
Demographics + + + | Address | [address] | | | [place] [address] | + + + | Home Phone [...] Author + + + | Author | [facility] [employer] [facility] | + + + | Organization | [facility] [employer] [facility] | + + + | Address | Unknown | + + + | Phone | Unavailable | + + + Support + + + + + | Name | Relationship | Address | Phone | + + + + + | Greer Mccabe | ECON | [address] | | | | | [place] | | | | | [address] | | + + + + + Care Team Providers + +------+ + | Care Paper Cutter Operator Name | Role | Phone | [...] | | [address] | [facility] | | | | | [facility] | [place], [place] | | | | | Mailcode: OP09 | [address] | | | | | Joseph Huynh, | [phone] | | | | | [address] [place] [address] | | | | | | [place], [place] | | | | | | [address] | | | | | | [phone] | | | +--------+--------+ + + + [...]
--- OUTSIDE RECORDS SUMMARY | ~2018-11-05 | XMS | Encounter Summary ---
Demographics + + + | Address | [address] | | | [place] [address] | + + + | Home Phone | | + + + | Preferred Language | Unknown | + + + | Marital Status | | + + + | Lutheran Affiliation | Unknown | + + + | Race | or | + + + | Ethnic Group | Not or | + + + Author + + + | Author | [facility] Shared Spectrum [facility] | + + + | Organization | [facility] [employer] [facility] | + + + | Address | Unknown | + + + | Phone | Unavailable | + + + Support + + + + + | Name | Relationship | Address | Phone | + + + + + | Greer Mccabe | ECON | [address] | | | | | [place] | | | | | [address] | | + + + + + Care Team Providers + +------+ + | Care Poultry Farm Supervisor Name | Role | Phone | + [...] | | | [address] | [facility] | | | | | [facility] | [place], [place] | | | | | Mailcode: OP09 | [address] | | | | | Physicians [place], | [phone] | | | | | [address] [place] [address] | | | | | | [place], [place] | | | | | | [address] | | | | | | [phone] | | | +--------+--------+ + + + [...]
--- OUTSIDE RECORDS SUMMARY | ~2018-11-05 | XMS | Encounter Summary ---
Demographics + + + | Address | [address] | | | [place] [address] | + + + | Home Phone | | + + + | Preferred Language | Unknown | + + + | Marital Status | | + + + | Temple Affiliation | Unknown | + + + | Race | or | + + + | Ethnic Group | Not or | + + + Author + + + | Author | [facility] [email or web address] [facility] | + + + | Organization | [facility] [employer] [facility] | + + + | Address | Unknown | + + + | Phone | Unavailable | + + + Support + + + + + | Name | Relationship | Address | Phone | + + + + + | Greer Mccabe | ECON | [address] | | | | | [place] | | | | | [address] | | + + + + + Care Team Providers + +------+ + | Care Sand Cleaning Machine Operator Name | Role | Phone | + +------+ + | Rafa Deleon MD | PCP | Unavailable | + +------+ + Reason for Visit +--------+ + | Reason | Comments | +--------+ + | Other | | +--------+ + Encounter Details +--------+ + + + + | Date | Type | Department | Care Team | Description | +--------+ + + + + | 05/23/ | Telephone | Rheumatology at | Dari Reyes MD | | | 2015 | | [facility] | [place] | | | | | [address] [facility] | Rheumatology 9155 | | | | | [facility] | [facility] | | | | | Mailcode: OP09 | [address] [place], [place] | | | | | Joseph Huynh, | [address] | | | | | 4th Floor | | | | | | [place], [place] | | | | | | [address] | | | | | | [phone] | | | +--------+ + + + [...]
--- OUTSIDE RECORDS SUMMARY | ~2018-11-05 | XMS | Encounter Summary ---
Demographics + + + | Address | [address] | | | [place] [address] | + + + | Home Phone | | + + + | Preferred Language | Unknown | + + + | Marital Status | | + + + | Adventist Affiliation | Unknown | + + + | Race | or | + + + | Ethnic Group | Not or | + + + Author + + + | Author | [facility] [employer] [facility] | + + + | Organization | [facility] [employer]Note [facility] | + + + | Address | Unknown | + + + | Phone | Unavailable | + + + Support + + + + + | Name | Relationship | Address | Phone | + + + + + | Greer Mccabe | ECON | [address] | | | | | [place] | | | | | [address] | | + + + + + Care Team Providers + +------+ + | Care Name Plate Stamping Machine Operator Name | Role | Phone [...] | | | 2016 | anned | [address] [facility] | | | | | | [facility] | | | | | | [place], [place] | | | | | | [address] | | | +--------+ + + + [...]
--- OUTSIDE RECORDS SUMMARY | ~2018-11-05 | XMS | Encounter Summary ---
Demographics + + + | Address | [address] | | | [place] [address] | + + + | Home Phone | | + + + | Preferred Language | Unknown | + + + | Marital Status | | + + + | Restoration Affiliation | Unknown | + + + | Race | or | + + + | Ethnic Group | Not or | + + + Author + + + | Author | [facility] [email or web address] [facility] | + + + | Organization | [facility] [employer] [facility] | + + + | Address | Unknown | + + + | Phone | Unavailable | + + + Support + + + + + | Name | Relationship | Address | Phone | + + + + + | Greer Mccabe | ECON | [address] | | | | | [place] | | | | | [address] | | + + + + + Care Team Providers + +------+ + | Care Cinder Block Maker Name | Role | Phone | + [...] | Rheumatology | Diagnoses | Nelson, | [facility] | | | | | Rheumatoid | Darrion Vazquez MD | [address] | | | | | arthritis(71 | YOSI | [address] | | | | | 4.0) | [address] | [facility] | | | | | | [facility] | Mailcode: | | | | | | 2010 | OP09 | | | | | | [place]ILLIAM DELUCA | Physicians | | | | | | [place] [address] | [place], 4th | | | | | | Phone: | Floor | | | | | | [phone] | [place], [place] | | | | | | Fax: | [address] | | | | | | [phone] | Phone: | | | | | | | [phone] | | | | | | | Fax: | | | | | | | [phone] | +--------+--------+ + + + + Encounter Details +--------+---------+ + + + | Date | Type | Department | Care Team | Description | +--------+---------+ + + + | 05/21/ | Office | Rheumatology at | Dari Reyes MD | Rheumatoid arthritis | | 2015 | Visit | Physicians [place] | [place] | ([facility]) (Primary Dx); | | | | [address] [facility] | Rheumatology 9155 | Primary | | | | [facility] | [facility] | osteoarthritis | | | | Mailcode: PV35 | [address] [place], [place] | involving multiple | | | | Physicians [place] | [address] | joints; Fibromyalgia | | | | [place], [place] | | | | | | [address] | | | | | | [phone] | | | +--------+---------+ + + + [...] findings, assessment and plan. Rosa Prieto M.D. [address] [place] [address] Mailcode: Pv35 [facility] [place] [address] Mercedes Faulkner MA - 06/2014 3:08 PM PSTThe patient was screened for the following contraindications to influenza vaccine and responses were as follows: Febrile illness today? No Allergy to eggs? No Prior history of a reaction to flu vaccine? No Prior history of Guillain-Marbury syndrome? No (For patients receiving Fluarix): Allergy or sensitivity to Latex? Not applicable Consulted with regarding positive responses. Dari Hernández - 1 07/22/2014 11:03 AM PST RHEUMATOLOGY NEW VISIT PCP Rafa Deleon MD [facility] [address] [place] [address] Chief Complaint: Ongoing jt pains HPI: Isacc [...] c/o memory impairment with short term > prison memory affected. She described difficu lty with [...] 4 months Dari Reyes MD RHEUMATOLOGY AT [address] Mailcode: Pv35 [place] [address] documented in this en counter [...]
--- OUTSIDE RECORDS SUMMARY | ~2018-11-05 | XMS | Encounter Summary ---
Demographics + + + | Address | [address] | | | [place] [address] | + + + | Home Phone | | + + + | Preferred Language | Unknown | + + + | Marital Status | | + + + | Samaritan Affiliation | Unknown | + + + | Race | or | + + + | Ethnic Group | Not or | + + + Author + + + | Author | [facility] [employer] [facility] | + + + | Organization | [facility] [place] [facility] | + + + | Address | Unknown | + + + | Phone | Unavailable | + + + Support + + + + + | Name | Relationship | Address | Phone | + + + + + | Greer Mccabe | ECON | [address] | | | | | [place] | | | | | [address] | | + + + + + Care Team Providers + +------+ + | Care Power Regulator Name | Role | Phone | + +------+ + | Rafa Deleon MD | PCP | Unavailable | + +------+ + Encounter Details +--------+ + + + + | Date | Type | Department | Care Team | Description | +--------+ + + + + | 10/30/ | Document-Sc | UNKNOWN DEPARTMENT | Unknown . | | | 2016 | anned | [address] [facility] | | | | | | [facility] | | | | | | [place], [place] | | | | | | [address] | | | +--------+ + + + [...]
--- OUTSIDE RECORDS SUMMARY | ~2018-11-05 | XMS | Encounter Summary ---
Demographics + + + | Address | [address] | | | [place] [address] | + + + | Home Phone [...] | Author | [facility] [employer] [facility] | + + + | Organization | [facility] [employer]SL [employer] [facility] | + + + | Address | Unknown | + + + | Phone | Unavailable | + + + Support + + + + + | Name | Relationship | Address | Phone | + + + + + | Greer Mccabe | ECON | [address] | | | | | [place] | | | | | [address] | | + + + + + Care Team Providers + +------+ + | Care Pediatric Registered Nurse Name | Role | Phone | + +------+ + | Rafa Deleon MD | PCP | Unavailable | + +------+ + Encounter Details +--------+ + + + + | Date | Type | Department | Care Team | Description | +--------+ + + + + | 11/23/ | Document-Sc | UNKNOWN DEPARTMENT | Unknown . | | | 2015 | anned | [address] [facility] | | | | | | [facility] | | | | | | [place], [place] | | | | | | [address] | | | +--------+ + + + [...] + + | LAB REPORTS | | 11/23/2014 | | Results for this | | | | 12:00 AM | | procedure are in the | | | | PDT | | results section. | + +--------+ + + + documented in this encounter Results LAB REPORTS (11/23/2014 12:00 AM PDT) + + + | Narrative | Performed At | + + + | | | + + + documented in this encounter Visit Diagnoses Not on filedocumented in this encounter"
--- OUTSIDE RECORDS SUMMARY | ~2018-11-05 | XMS | Clinical Summary ---
Demographics + + + | Address | [address] | | | [place] [address] | + + + | Home Phone | | + + + | Preferred Language | Unknown | + + + | Marital Status | | + + + | Yazidism Affiliation | Unknown | + + + | Race | Unknown | + + + | Ethnic Group | Unknown | + + + Author + + + | Author | [facility] [employer] | + + + | Organization | [facility] [employer] | + + + | Address | Unknown | + + + | Phone | Unavailable | + + + Support + + +---------+ + | Name | Relationship | Address | Phone | + + +---------+ + | Greer Cordero | ECON | Unknown | | + + +---------+ + Care Team Providers + +------+ + | Care Insulation Sprayer Name | Role | Phone | + +------+ + | [facility] PP | | + +------+ + [...] | | | | | [place] | | | | | | [address] | | | | | | | [...] +------+-------+ + | MEDICAID | MEDICA | [id number] | | | [address] | | | ID | | | | [place], [place] | | | [place] | | | | [address] | + +--------+ +------+-------+ + | /[facility] | YELLOW | [id number] | | | | | PLANS | [...] | Self | [birth year] Home: | [address] | | | [place] | | 1966 | [phone] | [place] | | | d[place] | | | [phone] | [address] | + +--------+ +--------+ + +"
--- OUTSIDE RECORDS SUMMARY | ~2018-11-05 | XMS | Encounter Summary ---
Demographics + + + | Address | [address] | | | [place] [address] | + + + | Home Phone | | + + + | Preferred Language | Unknown | + + + | Marital Status | | + + + | Shinto Affiliation | Unknown | + + + | Race | or | + + + | Ethnic Group | Not or | + + + Author + + + | Author | [facility] [employer] [facility] | + + + | Organization | [facility] [employer] [facility] | + + + | Address | Unknown | + + + | Phone | Unavailable | + + + Support + + + + + | Name | Relationship | Address | Phone | + + + + + | Greer Mccabe | ECON | [address] | | | | | [place] | | | | | [address] | | + + + + + Care Team Providers + +------+ + | Care Roof Tiler Name | Role | Phone | + [...] | 2015 | | Joseph Huynh | [place] | | | | | [address] [facility] | Rheumatology 9155 | | | | | [facility] | [facility] | | | | | Mailcode: OP09 | [address] [place], [place] | | | | | oJseph Huynh, | [address] | | | | | 4th Floor | | | | | | [place], [place] | | | | | | [address] | | | | | | [phone] | | | +--------+ + + + [...]
--- OUTSIDE RECORDS SUMMARY | ~2018-11-05 | XMS | Encounter Summary ---
Demographics + + + | Address | [address] | | | [place] [address] | + + + | Home Phone | | + + + | Preferred Language | Unknown | + + + | Marital Status | | + + + | Mandaeism Affiliation | Unknown | + + + | Race | or | + + + | Ethnic Group | Not or | + + + Author + + + | Author | [facility] [employer] [facility] | + + + | Organization | [facility] [employer] [facility] | + + + | Address | Unknown | + + + | Phone | Unavailable | + + + Support + + + + + | Name | Relationship | Address | Phone | + + + + + | Greer Mccabe | ECON | [address] | | | | | [place] | | | | | [address] | | + + + + + Care Team Providers + +------+ + | Care Boring Mill Operator Name | Role | Phone | [...] | | [address] | [facility] | Vicodin/Tramadol) | | | | [facility] | [place], [place] | | | | | Mailcode: OP09 | [address] | | | | | Joseph Huynh, | [phone] | | | | | [address] [place] [address] | | | | | | [place], [place] | | | | | | [address] | | | | | | [phone] | | | +--------+--------+ + + + [...]
--- OUTSIDE RECORDS SUMMARY | ~2018-11-05 | XMS | Encounter Summary ---
Demographics + + + | Address | [address] | | | [place] [address] | + + + | Home Phone | | + + + | Preferred Language | Unknown | + + + | Marital Status | | + + + | Synagogue Affiliation | Unknown | + + + | Race | or | + + + | Ethnic Group | Not or | + + + Author + + + | Author | [facility] [employer] [facility] [facility] | + + + | Organization | [facility] [employer] [facility] | + + + | Address | Unknown | + + + | Phone | Unavailable | + + + Support + + + + + | Name | Relationship | Address | Phone | + + + + + | Greer Mccabe | ECON | [address] | | | | | [place] | | | | | [address] | | + + + + + Care Team Providers + +------+ + | Care Broodmare Barn Groom Name | Role | Phone | + [...] | | | | [address] [facility] | Rheumatology 9130 | | | | | [facility] | [facility] | | | | | Mailcode: OP09 | [address] [place], [place] | | | | | Physicians K[place]ristina, | [id number] | | | | | 4th Floor | | | | | | [place], [place] | | | | | | [address] | | | | | | [phone] | | | +--------+ + + + [...]
--- OUTSIDE RECORDS SUMMARY | ~2018-11-05 | XMS | Encounter Summary ---
Demographics + + + | Address | [address] | | | [place] [address] | + + + | Home Phone | | + + + | Preferred Language | Unknown | + + + | Marital Status | | + + + | Jain Affiliation | Unknown | + + + | Race | or | + + + | Ethnic Group | Not or | + + + Author + + + | Author | [facility] [employer] [facility] | + + + | Organization | [facility] [employer] [facility] | + + + | Address | Unknown | + + + | Phone | Unavailable | + + + Support + + + + + | Name | Relationship | Address | Phone | + + + + + | Greer Mccabe | ECON | [address] | | | | | [place] | | | | | [address] | | + + + + + Care Team Providers + +------+ + | Care Programmer Business Name | Role | Phone | + [...] Joseph [facility]h | MD [address] | ([facility]) (Primary Dx) | | | | [address] | [facility] | | | | | [facility] | [place], [place] | | | | | Mailcode: OP09 | [address] | | | | | Joseph Huynh, | [phone] | | | | | [address] [place] [address] | | | | | | [place], [place] | | | | | | [address] | | | | | | [phone] | | | +--------+---------+ + + + [...] This consultation was requested by: ALBINA BERG [facility] [address] [place] [address] fax: [phone] CC: Chief Complaint Patient presents with New patient consultation HPI: This is a 45 y.o. male, here for consultation from Albina Berg DRAWING FRAME TENDER regarding diagno sis, and possible change in [...] 60 minutes with the patient in a [id number] meeting and >50% time was spent in [...] that he comes to see us in [facility] on . I am requesting his PCP [...] | + + + + + | [facility] | [address] | [place] [address] | | | PATHOLOGY | [address] [...] At | + + + | [facility]LB ([employer] [facility]) | [place] | | [place] [address] | REGIONAL | | [place] [address] | LABORATORY | + + + + + + + + | Performing | Address | City/State/Zipcode | Phone Number | | Organization | | | | + + + + + | [facility] | [address] [place] [address] | | | LABORATORY | | | [...] | + + + + + | [facility] | [address] | [place] [address] | | | PATHOLOGY | [address] [...] (H) | 60 - 99 mg/dL | [facility] | | | PLASMA | | | [...] | | | DEPARTMENT | | | [place] | | | OF | | | [...] | + + + + + | [facility] | [address] | [place] [address] | | | PATHOLOGY | [address] [...] | + + + + + | [facility] | [address] | [place] [address] | | | PATHOLOGY | [address] [...] | | | | | | [facility] | | | | | | [address] | | | | | | [phone] | | | | | | | | | | | | [email or web address], Marlyn | | | | | | [...] [facility] | [address] | [place], [place] | | | UNIV PTH - INTFC | | [address] | | + + + + + | [facility] | [address] | [place], [place] | | | UNIV PTH - MANUAL | | [address] | | + + + + + documented in this encounter Visit Diagnoses + + | Diagnosis | + + | Rheumatoid arthritis(714.0) - Primary Rheumatoid arthritis | + + documented in this encounter
--- OUTSIDE RECORDS SUMMARY | ~2018-11-05 | XMS | Encounter Summary ---
Demographics + + + | Address | [address] | | | [place] [address] | + + + | Home Phone | | + + + | Preferred Language | Unknown | + + + | Marital Status | | + + + | Druze Affiliation | Unknown | + + + | Race | or | + + + | Ethnic Group | Not or | + + + Author + + + | Author | [facility] [employer] [facility] | + + + | Organization | [facility] [employer] [facility] | + + + | Address | Unknown | + + + | Phone | Unavailable | + + + Support + + + + + | Name | Relationship | Address | Phone | + + + + + | Greer Mccabe | ECON | [address] | | | | | [place] | | | | | [address] | | + + + + + Care Team Providers + +------+ + | Care Mincemeat Maker Name | Role | Phone | + +------+ + | Rafa Deleon MD | PCP | Unavailable | + +------+ + Encounter Details +--------+ + + + + | Date | Type | Department | Care Team | Description | +--------+ + + + + | 06/04/ | Document-Sc | UNKNOWN DEPARTMENT | Unknown . | | | 2015 | anned | [address] [facility] | | | | | | [facility] | | | | | | [place], [place] | | | | | | [address] | | | +--------+ + + + [...]
--- OUTSIDE RECORDS SUMMARY | ~2018-11-05 | XMS | Encounter Summary ---
Demographics + + + | Address | [address] | | | [place] [address] | + + + | Home Phone | | + + + | Preferred Language | Unknown | + + + | Marital Status | | + + + | Orthodoxy Affiliation | Unknown | + + + | Race | or | + + + | Ethnic Group | Not or | + + + Author + + + | Author | [facility] [employer] [facility] | + + + | Organization | [facility] [employer] [facility] | + + + | Address | Unknown | + + + | Phone | Unavailable | + + + Support + + + + + | Name | Relationship | Address | Phone | + + + + + | Greer Mccabe | ECON | [address] | | | | | [place] | | | | | [address] | | + + + + + Care Team Providers + +------+ + | Care Oracle Financials Consultant Name | Role | Phone | + +------+ + | Rafa Deleon MD | PCP | Unavailable | + +------+ + Encounter Details +--------+ + + + + | Date | Type | Department | Care Team | Description | +--------+ + + + + | 11/23/ | Document-Sc | UNKNOWN DEPARTMENT | Unknown . | | | 2015 | anned | [address] [facility] | | | | | | [facility] | | | | | | [place], [place] | | | | | | [address] | | | +--------+ + + + [...]
--- OUTSIDE RECORDS SUMMARY | ~2018-11-05 | XMS | Encounter Summary ---
Demographics + + + | Address | [address] | | | [place] [address] | + + + | Home Phone | | + + + | Preferred Language | Unknown | + + + | Marital Status | | + + + | Druze Affiliation | Unknown | + + + | Race | or | + + + | Ethnic Group | Not or | + + + Author + + + | Author | [facility] [employer] [facility] | + + + | Organization | [facility] [email or web address] [facility] | + + + | Address | Unknown | + + + | Phone | Unavailable | + + + Support + + + + + | Name | Relationship | Address | Phone | + + + + + | Greer Mccabe | ECON | [address] | | | | | [place] | | | | | [address] | | + + + + + Care Team Providers + +------+ + | Care Stock Layer Name | Role | Phone | + +------+ + | Albina Morales | PCP | Unavailable | + +------+ + Encounter Details +--------+------+ + + + | Date | Type | Department | Care Team | Description | +--------+------+ + + + | 01/20/ | Lab | Laboratory, | | Rheumatoid arthritis | | 2010 | | Specimen Collection | | ([facility]) | | | | at [facility] 3rd Floor | | | | | | [address] | | | | | | [facility] | | | | | | [place], [place] | | | | | | [address] | | | | | | [phone] | | | +--------+------+ + + + [...] DEPARTMENT OF | [address] | [place] [address] | | | PATHOLOGY | [address] [...] | + + + + + | [facility] | [address] | [place] [address] | | | PATHOLOGY | [address] [...] + + + | [facility] ([address] [facility]) | [place] | | [place] [address] | REGIONAL | | [place] [address] | LABORATORY | + + + + + + + + | Performing | Address | City/State/Zipcode | Phone Number | | Organization | | | | + + + + + | [facility] | [address] | [place] [address] | | | LABORATORY | | | [...] | + + + + + | [facility] | [address] | [place] [address] | | | PATHOLOGY | [address] [...] | | | DEPARTMENT | | | EQUATORIAL GUINEAN | | | OF | | | [...] DEPARTMENT OF | [address] | [place] [address] | | | PATHOLOGY | [address] [...] DEPARTMENT OF | [address] | [place] [address] | | | PATHOLOGY | [address] [...] | | | | | [place]ulu [place], [facility] | | | | | | [address] | | | | | | [phone] | | | | | | | | | | | | [email or web address], Marlyn | | | | | | [...] [facility] | [address] | [place], [place] | | | UNIV PTH - INTFC | | [address] | | + + + + + | [facility] | [address] | [place], [place] | | | UNIV PTH - MANUAL | | [address] | | + + + + + documented in this encounter Visit Diagnoses + + | Diagnosis | + + | Rheumatoid arthritis(714.0) Rheumatoid arthritis | + + documented in this encounter"
[~2018-11-05 14:50] MED LIST: ENBREL50 MG/1 M1 SUB-Q; FOLIC ACID1 MG PO; METHOCARBAMOL500 MG PO; METHOCARBAMOL750 MG PO; METHOTREXATE2.5 MG PO; NAPROXEN500 MG PO; NORCO 7.5-3251 EACH PO; OMEPRAZOLE20 MG PO; PERCOCET 5-3251 EACH PO; PREDNISONE20 MG PO; PREDNISONE5 MG PO; SUCRALFATE1 GM PO; TRAMADOL HCL50 MG PO; TREXALL5 MG PO; VITAMIN D5000 UNIT PO
[2018-11-05] MEDS ORDERED: HUMIRA20 MG/0.4 SUB-Q (15:07)
[2018-11-05] MEDS ORDERED: NORCO 5-325 TA1 EACH PO (17:26)
[2018-11-05] MEDS ORDERED: PREDNISONE20 MG PO (17:26)
== END 2018-11-05 17:45 | disposition home or self-care (01) ==
LOC: ED 14:50
DX: M19.90 Unspecified osteoarthritis, unspecified site (principal); M54.5 Low back pain; M06.9 Rheumatoid arthritis, unspecified; Z79.899 Other long term (current) drug therapy
CPT/HCPCS: 96372; 99283-25; J1170; J7512

== ENCOUNTER 2022-12-23 15:31 | Emergency (ER) | payer OTHER ==
[~2022-12-23] VITALS: Ht 170.2 cm; Wt 72.6 kg
--- OUTSIDE RECORDS SUMMARY | ~2022-12-23 | XMS | Continuity of Care Document ---
Demographics + + + | Address | [address] | | | [place] [address] | + + + | Preferred Language | Unknown | + + + | Marital Status | Never | + + + | Episcopalian Affiliation | Unknown | + + + | Race | or | + + + | Ethnic Group | Not or | + + + Author + + + | Author | [facility] | + + + | Organization | [facility] | + + + | Address | [address] | | | [place] [address] | + + + | Phone | | + + + Care Team Providers + + + + | Care Port Crane Operator Name | Role | Phone | + + + + Unavailable | Unavailable | + + + + Unavailable | Unavailable | + + + + Allergies No information. Encounters No information. Functional Status No information. Immunizations No information. Medications + + + + | date | description | facility | + + + + | 2016-12-11 00:00 | OXYCODONE | [facility] | | | HCL/ACETAMINOPHEN | | + + + + | 2022-10-25 00:00 | METHOTREXATE SODIUM | [facility] | + + + + | 2022-10-25 00:00 | ETANERCEPT | [facility] | + + + + | 2022-10-25 00:00 | METHOCARBAMOL | [facility] | + + + + | 2022-10-25 00:00 | METHOCARBAMOL | [facility] | + + + + | 2022-10-25 00:00 | NAPROXEN | [facility] | + + + + | 2014-12-04 00:00 | OMEPRAZOLE | [facility] | + + + + | 2022-10-25 00:00 | OMEPRAZOLE | [facility] | + + + + | 2022-10-25 00:00 | METHOTREXATE SODIUM | [facility] | + + + + | 2022-10-25 00:00 | FOLIC ACID | [facility] | + + + + | 2016-12-11 00:00 | predniSONE | [facility] | + + + + | 2018-11-05 00:00 | predniSONE | [facility] | + + + + | 2022-10-25 00:00 | predniSONE | [facility] | + + + + | 2022-10-25 00:00 | PREDNISONE | [facility] | + + + + | 2014-12-04 00:00 | SUCRALFATE | [facility] | + + + + | 2022-10-25 00:00 | ADALIMUMAB | [facility] | + + + + | 2022-10-25 00:00 | TRAMADOL HCL | [facility] | + + + + | 2018-11-05 00:00 | HYDROCODONE | [facility] | | | BIT/ACETAMINOPHEN | | + + + + | 2022-10-25 00:00 | HYDROCODONE | [facility] | | | BIT/ACETAMINOPHEN | | + + + + | 2022-10-25 00:00 | CHOLECALCIFEROL (VITAMIN | [facility] | | | D3) | | + + + + Problems + + + + | date | description | facility | + + + + | 2014-12-02 00:00 | Gastrointestinal | [facility] | | | hemorrhage | | + + + + | 2014-12-08 00:00 | Rectal hemorrhage | [facility] | + + + + | 2016-12-11 00:00 | Flare of rheumatoid | [facility] | | | arthritis | | + + + + | 2016-12-11 00:00 | Pain of left upper | [facility] | | | extremity | | + + + + | 2022-10-25 00:00 | Patient left without being | [facility] | | | seen | | + + + + Procedures No information. Results/Labs No information. Social History No information. Vital Signs + + + +---------+ | date | measurement | value | units | + + + +---------+ | 2022-10-25 00:00 | BMI | 25.1 | kg/m2 | + + + +---------+ | 2022-10-25 00:00 | BP_diastolic | 98 | mmHg | + + + +---------+ | 2022-10-25 00:00 | BP_systolic | 114 | mmHg | + + + +---------+ | 2022-10-25 00:00 | heart_rate | 99 | /min | + + + +---------+ | 2022-10-25 00:00 | height_metric | 170.18 | cm | + + + +---------+ | 2022-10-25 00:00 | height_standard | 67 | in | + + + +---------+ | 2022-10-25 00:00 | o2_saturation | 98 | % | + + + +---------+ | 2022-10-25 00:00 | respiration_rate | 16 | /min | + + + +---------+ | 2022-10-25 00:00 | temperature_metric | 36.67 | C | | | | | | + + + +---------+ | 2022-10-25 00:00 | | 98 | F | | | temperature_standar | | | | | d | | | + + + +---------+ | 2022-10-25 00:00 | weight_metric | 72.57 | kg | + + + +---------+ | 2022-10-25 00:00 | weight_standard | 159.99 | lb | + + + +---------+ | 2022-10-25 00:00 | weight_standard | 160 | lb | + + + +---------+"
--- OUTSIDE RECORDS SUMMARY | ~2022-12-23 | XMS | Continuity of Care Document ---
Demographics + + + | Address | [address] | | | [place] [address] | + + + | Preferred Language | Unknown | + + + | Marital Status | Never | + + + | Spiritism Affiliation | Unknown | + + + | Race | or | + + + | Ethnic Group | Not or | + + + Author + + + | Author | [facility] | + + + | Organization | [facility] | + + + | Address | [address] | | | [place] [address] | + + + | Phone | | + + + Care Team Providers + + + + | Care Fbi Special Agent Name | Role | Phone | + + + + Unavailable | Unavailable | + + + + Unavailable | Unavailable | + + + + Allergies No information. Encounters No information. Functional Status No information. Immunizations No information. Medications + + + + | date | description | facility | + + + + | 2016-12-11 00:00 | OXYCODONE | [facility] | | | HCL/ACETAMINOPHEN | | + + + + | 2022-10-25 00:00 | METHOTREXATE SODIUM | [facility] | + + + + | 2022-10-25 00:00 | ETANERCEPT | [facility] | + + + + | 2022-10-25 00:00 | METHOCARBAMOL | [facility] | + + + + | 2022-10-25 00:00 | METHOCARBAMOL | [facility] | + + + + | 2022-10-25 00:00 | NAPROXEN | [facility] | + + + + | 2014-12-04 00:00 | OMEPRAZOLE | [facility] | + + + + | 2022-10-25 00:00 | OMEPRAZOLE | [facility] | + + + + | 2022-10-25 00:00 | METHOTREXATE SODIUM | [facility] | + + + + | 2022-10-25 00:00 | FOLIC ACID | [facility] | + + + + | 2016-12-11 00:00 | predniSONE | [facility] | + + + + | 2018-11-05 00:00 | predniSONE | [facility] | + + + + | 2022-10-25 00:00 | predniSONE | [facility] | + + + + | 2022-10-25 00:00 | PREDNISONE | [facility] | + + + + | 2014-12-04 00:00 | SUCRALFATE | [facility] | + + + + | 2022-10-25 00:00 | ADALIMUMAB | [facility] | + + + + | 2022-10-25 00:00 | TRAMADOL HCL | [facility] | + + + + | 2018-11-05 00:00 | HYDROCODONE | [facility] | | | BIT/ACETAMINOPHEN | | + + + + | 2022-10-25 00:00 | HYDROCODONE | [facility] | | | BIT/ACETAMINOPHEN | | + + + + | 2022-10-25 00:00 | CHOLECALCIFEROL (VITAMIN | [facility] | | | D3) | | + + + + Problems + + + + | date | description | facility | + + + + | 2014-12-02 00:00 | Gastrointestinal | [facility] | | | hemorrhage | | + + + + | 2014-12-08 00:00 | Rectal hemorrhage | [facility] | + + + + | 2016-12-11 00:00 | 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
[~2022-12-23 15:31] MED LIST changes: +HUMIRA20 MG/0.4 SUB-Q; +NORCO 5-325 TA1 EACH PO
[2022-12-23] MEDS ORDERED: ONDANSETRON ODT8 MG PO (18:14)
[2022-12-23 18:34] VITALS: BP 148/84
--- NOTE | 2022-12-24 22:49 | EKG ---
[facility] [address] [place] [address] Signed Sinus tachycardia with occasional premature ventricular complexes Rightward axis Borderline ECG No previous ECGs available Confirmed by Russ Chavez MD () on 12/24/2022 10:49:43 PM Electronically Signed By: RUSS CHAVEZ MD 12/24/22 2249 PATIENT NAME: ESPINOZA JOHNSON Electrocardiogram DATE OF : 63 PHYSICIAN: RUSS CHAVEZ MD REPORT #: [id number] REPORT IS CONFIDENTIAL AND NOT TO BE RELEASED WITHOUT AUTHORIZATION
== END 2022-12-23 18:36 | disposition home or self-care (01) ==
LOC: ED 15:31
DX: R10.9 Unspecified abdominal pain (principal); Z79.899 Other long term (current) drug therapy
CPT/HCPCS: 36415; 80053; 81003; 83690; 85025; 93005; 93010; 96361; 96374; 96375; 99284 25; A9270; J1170; J2405; J7030

== ENCOUNTER 2023-07-29 08:24 | Emergency (ER) | payer OTHER ==
[~2023-07-29] VITALS: Ht 170.2 cm; Wt 62.8 kg
[~2023-07-29 08:24] MED LIST changes: +ONDANSETRON ODT8 MG PO
--- OUTSIDE RECORDS SUMMARY | 2023-07-29 08:28 | XMS ---
PreManage Notification: ESPINOZA JOHNSON Security Automated Logistics Specialist Events 1 event(s) in the past 18 months Most recent security events: Elopement at [facility] 10/25/2022 14:50 - Patient eloped with IV in place. - Patient eloped before treatment completed. - Patient with suicidal and/or homicidal ideations eloped. Details: Patient LWBS. CRITERIA MET - [facility] -[place]- Dentist: Medical Pathologist [facility] PHONE: [phone] [facility] PHONE: [phone] Alexi has no Care Guidelines for this patient. E.D. VISIT COUNT (12 MO.) [address] [facility] TOTAL 3 NOTE: Visits indicate total known visits. ED/UCC VISIT TRACKING (12 MO.) 07/29/2023 08:24 [facility] TYPE: Emergency COMPLAINT: - R ARM PAIN/SWELLING 12/23/2022 15:31 [facility] TYPE: Emergency COMPLAINT: - RT SIDE RIB PAIN DIAGNOSES: - [facility] [place] [facility] therapy - Unspecified abdominal pain 10/25/2022 14:50 [facility] [place] TYPE: Emergency COMPLAINT: - LT HIP PAIN INPATIENT VISIT TRACKING (12 MO.) No inpatient visits to display in this time frame [email or web address]
[2023-07-29] MEDS ORDERED: CELECOXIB200 MG PO (08:44)
[2023-07-29] MEDS ORDERED: B-121000 MC2 PO (08:44)
[2023-07-29] MEDS ORDERED: HYDROCODON-ACE1 EA10 PO (08:44)
[2023-07-29] MEDS ORDERED: CYCLOBENZAPRINE10 MG PO (08:44)
[2023-07-29] MEDS ORDERED: OMEGA-3 FISH O1 EAC4 PO (08:45)
[2023-07-29] MEDS ORDERED: HYDROCODONE/ACETA 5/325 TAB PO ONE (09:15)
[2023-07-29] MEDS ORDERED: predniSONE 20 MG TAB PO ONE (09:30)
[2023-07-29] MEDS ORDERED: PREDNISONE20 MG PO (09:58)
== END 2023-07-29 10:12 | disposition home or self-care (01) ==
LOC: ED 08:24
DX: M54.12 Radiculopathy, cervical region (principal); M19.90 Unspecified osteoarthritis, unspecified site; M06.9 Rheumatoid arthritis, unspecified; Z87.39 Personal history of other diseases of the musculoskeletal system and connective tissue; Z79.899 Other long term (current) drug therapy
CPT/HCPCS: 20552; 99283-25; J7512

== ENCOUNTER 2024-02-20 11:36 | Emergency (ER) | payer OTHER ==
[~2024-02-20] VITALS: Ht 170.2 cm; Wt 60.8 kg
[~2024-02-20 11:36] MED LIST changes: +B-121000 MC2 PO; +CELECOXIB200 MG PO; +CYCLOBENZAPRINE10 MG PO; +HYDROCODON-ACE1 EA10 PO; +OMEGA-3 FISH O1 EAC4 PO
[2024-02-20] MEDS ORDERED: predniSONE 20 MG TAB PO ONE (12:45)
[2024-02-20] MEDS ORDERED: CYCLOBENZAPRINE HCL 10 MG TAB PO ONE (12:45)
[2024-02-20] MEDS ORDERED: KETOROLAC TROMETHAMINE 60 MG/2 ML VIAL IM ONE (12:45)
[2024-02-20] MEDS ORDERED: PERCOCET 5-3251 EACH PO (13:20)
[2024-02-20] MEDS ORDERED: PREDNISONE20 MG PO (13:20)
[2024-02-20] MEDS ORDERED: CYCLOBENZAPRINE10 MG PO (13:20)
[2024-02-20 13:32] VITALS: BP 133/90
== END 2024-02-20 13:32 | disposition home or self-care (01) ==
LOC: ED 11:36
DX: M25.512 Pain in left shoulder (principal); Z88.6 Allergy status to analgesic agent; Z79.899 Other long term (current) drug therapy
CPT/HCPCS: 99283; J1885; J7512

== ENCOUNTER 2024-07-09 11:21 | Emergency (ER) | payer OTHER, BC ==
[~2024-07-09] VITALS: Ht 170.2 cm; Wt 59.4 kg
[~2024-07-09 11:21] MED LIST changes: +METHYLPREDNISOLO4 M1 PO
[2024-07-09] MEDS ORDERED: HYDROCODONE/ACETA 5/325 TAB PO ONE (12:00)
[2024-07-09] MEDS ORDERED: HYDROCODON-ACE1 EA11 PO (12:42)
[2024-07-09 13:07] VITALS: BP 138/91
== END 2024-07-09 13:07 | disposition home or self-care (01) ==
LOC: ED 11:21
DX: M25.512 Pain in left shoulder (principal); Z79.899 Other long term (current) drug therapy; Z88.6 Allergy status to analgesic agent; M19.90 Unspecified osteoarthritis, unspecified site
CPT/HCPCS: 99283

== ENCOUNTER 2025-03-31 20:08 | Emergency (ER) | payer BC, OTHER ==
[~2025-03-31] VITALS: Ht 170.2 cm; Wt 62.9 kg
[~2025-03-31 20:08] MED LIST changes: +HYDROCODON-ACE1 EA11 PO
[2025-03-31 20:26] LABS: BASOPHILS 0.5 % (0.2-1.2); EOSINOPHILS 0.4 % (0.8-7.0); LYMPHOCYTES 29.2 % (21.8-53.1); MCH 30.5 PG (25.7-32.2); MCHC 33.4 g/dL (32.3-36.5); MCV 91.3 fL (79.0-92.2); MONOCYTES 4.3 % (5.3-12.2); NEUTROPHILS 65.2 % (34.0-67.9); RBC 4.49 M/uL (4.63-6.08)
[2025-03-31 20:39] LABS: ALT (SGPT) 18.0 U/L (14-59); AST (SGOT) 22.0 U/L (15-37); GLOMERULAR FILTRATION RATE,EST 98.0 mL/min (>60); PROTEIN, TOTAL 7.7 g/dL (6.4-8.2); UREA NITROGEN 6.0 mg/dL (7-18)
[2025-03-31] MEDS ORDERED: LACTATED RINGER'S 1,000 ML IV ONE (20:45)
[2025-03-31] MEDS ORDERED: HYDROCODONE/ACETA 7.5/325 TAB PO ONE (20:45)
[2025-03-31 21:52] LABS: BLOOD/HGB, URINE TRACE-I (Negative); KETONE, URINE NEGATIVE (Negative); LEUK ESTERASE, URINE NEGATIVE (negative); NITRITE, URINE NEGATIVE (negative)
[2025-03-31 22:02] LABS: BACTERIA, URINE RARE /hpf (negative); CASTS, URINE NONE SEEN \\lpf; CRYSTALS, URINE NONE SEEN (0-1+); EPITHELIAL CELLS, URINE SQUAMOUS 1+ /lpf (0-1+); REFLEX CULTURE, URINE No (No)
[2025-03-31 22:07] LABS: AMPHETAMINES, URINE NEGATIVE (NEGATIVE); BARBITURATES, URINE NEGATIVE (NEGATIVE); BENZODIAZEPINE, URINE NEGATIVE (NEGATIVE); CANNABINOID, URINE POSITIVE (NEGATIVE); COCAINE, URINE NEGATIVE (NEGATIVE); ECSTASY, URINE NEGATIVE (NEGATIVE); FENTANYL, URINE NEGATIVE (NEGATIVE); METHADONE, URINE NEGATIVE (NEGATIVE); OPIATES, URINE POSITIVE (NEGATIVE); OXYCODONE, URINE NEGATIVE (NEGATIVE); PHENCYCLIDINE, URINE NEGATIVE (NEGATIVE)
[2025-03-31 23:07] VITALS: BP 129/85
--- NOTE | 2025-04-02 13:46 | EKG ---
[facility] [address] [place] [address] Signed Sinus rhythm with frequent premature ventricular complexes Otherwise normal ECG When compared with ECG of 23-DEC-2022 15:54, No significant change was found Confirmed by Peter Rodriguez DO ([id number]) on 04/02/2025 1:46:17 PM Electronically Signed By: PETER RODRIGUEZ DO 04/02/25 1346 PATIENT NAME: ALEXESPINOZA LEE Electrocardiogram DATE OF : 63 PHYSICIAN: PETER RODRIGUEZ DO REPORT #: [id number] REPORT IS CONFIDENTIAL AND NOT TO BE RELEASED WITHOUT AUTHORIZATION
== END 2025-03-31 23:07 | disposition home or self-care (01) ==
LOC: ED 20:08
PROVIDERS: Internal Medicine
DX: R55 Syncope and collapse (principal); R56.9 Unspecified convulsions; Z88.6 Allergy status to analgesic agent; Z79.899 Other long term (current) drug therapy
CPT/HCPCS: 36415; 70450; 71045; 80053; 80307; 81001; 83735; 84484; 85025; 93005; 93010; 96360; 99285-25; A9270; J7121